=== PATIENT | male | born 1965 | race Caucasian/White ===

== ENCOUNTER 2020-10-29 12:40 | Emergency (ER) | payer BC, SELFPAY ==
[2020-10-29 12:42] VITALS: BP 125/80; PULSE 85; RESP 18; TEMP 37.7; O2SAT 95; BMI 29.9
--- NOTE | 2020-10-29 13:22 | EKG12_ITS ---
Test Reason : CHEST PAIN Blood Pressure : / mmHG Vent. Rate : 081 BPM Atrial Rate : 081 BPM P-R Int : 132 ms QRS Dur : 088 ms QT Int : 356 ms P-R-T Axes : 060 065 035 degrees QTc Int : 413 ms Normal sinus rhythm Normal ECG Confirmed by LAURA CHRISTIAN, JOSH ([id number]), mapping editor SANDI STILL ([id number]) on 10/31/2020 10:03:47 AM Referred By: Confirmed By:JOSH SANCHEZ MD
--- NOTE | 2020-10-29 13:23 | RAD_ITS ---
STUDY: X-RAY CHEST REASON FOR EXAM: Male, 55 years old. covid sob TECHNIQUE: Single AP portable view of the chest. COMPARISON: None. FINDINGS: Bilateral pulmonary infiltrates worse in the right hemithorax. The infiltrates in the right hemithorax have a preferentially peripheral distribution suggestive of Covid pneumonitis. There is no demonstrated pleural abnormality. Normal size heart. Normal mediastinum and jolly. Normal visualized pulmonary arteries. Normal visualized aortic arch and descending thoracic aorta. Normal visualized thoracic spine. Normal visualized ribs, clavicles, and shoulders. There is no demonstrated abnormality of the visualized soft tissue structures of the upper abdomen. RAD/Chest 1 View (Portable) IMPRESSION: Bilateral pulmonary infiltrates worse in the right hemithorax. Electronically Signed: Amadou Schreiber MD at 14:14 EDT , Service support ,
--- NOTE | 2020-10-29 13:34 | NURSING ---
NO OLD EKGS
[2020-10-29 13:53] LABS: Absolute Lymphocyte Count 0.72 X10^3/uL (0.83-4.51); Basophil# 0.02 X10^3/uL; Basophil% 0.5 % (0-1); Lymphocyte # 0.72 X10^3/ul (0.83-4.51); Lymphocyte % 17.1 % (19-41); Mean Corpuscular Hgb 30.7 pg (27.0-32.0); Mean Platelet Vol. 9.3 fl (6.2-12.0); Monocyte# 0.47 X10^3/uL; Monocyte% 11.1 % (0-10); NRBC Flagged by Analyzer 0 % (0-5); Neutrophil # 2.99 X10^3/uL (2.7-7.7); Neutrophil % 70.8 % (47-70); Platelet Count 145 K/mm3 (150-450); RBC Distribution Width SD 39.8 fl (35.1-43.9); Red Blood Count 5.22 M/mm3 (4.6-6.2); White Blood Count 4.2 K/mm3 (4.4-11.0)
--- NOTE | 2020-10-29 13:59 | EDS_ITS ---
HPI History of Present Illness Chief Complaint: General Illness Informant: patient Onset/Context/Timing Onset: Days (8) Context: Gradual Onset Timing: Continuous Quality: Fatigued Location: All over Current Severity: Severe Maximum Severity: Severe Worsened by: Nothing Relieved by: Nothing Associated Symptoms Associated Symptoms: Short of breath x couple days Narrative Narrative: Patient has had Covid symptoms for 8 days he tested positive last week as an outpatient, now getting dyspneic for the last couple days. No history of lung disease or other medical problems. He was not vaccinated prior to getting Covid. PFSH PFSH no medical history Home Medications albuterol sulfate [Ventolin HFA] 1 - 2 puff INHALATION Q4H PRN PRN #1 inhaler 10/29/20 [Rx Last Taken Unknown] ondansetron 8 mg PO Q8H PRN PRN #20 tab 10/29/20 [Rx Last Taken Unknown] promethazine 25 mg PO Q6H PRN 10/29/20 [History Last Taken Unknown] Allergy/AdvReac Type Severity Reaction Status Date / Time No Known Allergies Allergy Verified 10/29/20 12:41 Surgical History (Updated 10/29/20 @ 15:40 by Eliu Corbett) History of arthroscopic knee surgery no surgical history Social History Smoking Status: Never smoker ROS ROS ED Constitutional Constitutional ED: Reports body ache(s), malaise and weakness; Denies chills or fever(s) Eyes Eyes: Denies change in vision or diplopia ENT ENT ED: Denies rhinorrhea or sore throat Cardiovascular Cardiovascular: Denies chest pain or palpitations Respiratory/Chest Respiratory/Chest: Reports cough and dyspnea Gastrointestinal Gastrointestinal: Reports diarrhea; Denies abdominal pain, nausea or vomiting Genitourinary Genitourinary ED: Denies dysuria or hematuria Musculoskeletal Musculoskeletal: Reports myalgias; Denies back pain or neck pain Integumentary Denies abscess or rash Neurologic Neurologic: Denies headache(s), paresthesias or weakness Psychiatric Psychiatric: Denies anxiety or suicidal thoughts EXAM Physical Exam Const Vital Signs: 10/29/20 12:42 10/29/20 15:38 10/29/20 15:42 Temperature 99.9 F H Temperature Source Temporal Pulse Rate 85 76 Respiratory Rate 18 18 Respiratory Effort Normal Blood Pressure 125/80 H Blood Pressure Mean 95 Pulse Ox 95 94 Oxygen Delivery Method Room Air Room Air Positive well nourished and well developed General Appearance ED: well developed and NAD HEENT Reports moist mucous membranes normocephalic and atraumatic Eyes PERRL and EOMs intact bilaterally Neck full ROM and supple Resp normal respiratory effort and clear to auscultation bilaterally Cardio regular rate, regular rhythm and no murmurs GI non-tender and non-distended Auscultation: normoactive bowel sounds Palpation: soft Back/Spine no CVA tenderness General Back: other FROM Extremity normal to inspection General Extremety ED: Negative for edema, pulses abnormal or tenderness General Extremity: Negative for edema or pulses abnormal Neuro oriented x3, CN's II-XII intact bilaterally and no sensory deficits noted Sensorium / Orientation: awake and alert Motor Exam: strength 5/5 throughout Skin no rashes or lesions noted and no wounds MDM MDM MDM Narrative Medical decision making narrative: D-dimer was elevated so CT angiography was performed which shows no pulmonary embolus. Covid pneumonia is noted. His pulse ox did not go below 94 while here in the emergency department. His nausea was treated. At this time he is a healthy 55-year-old male who does not meet an y indication for admission for Covid, nor does he meet any indications for monoclonal antibody infusion. At this time I recommend supportive care and watching his oxygen saturations at home. It appears that he was seen at urgent care prior to this and placed on Zithromax and Augmentin for reasons that are unknown. He confirms that he did not have any other positive test such as strep, urine, etc. As long as that is the case I recommend stopping these medications since he is only had 1 dose of each, and continuing to promethazine as needed although he states it did not work a lot so we will prescribe him Zofran in addition to an albuterol inhaler to use as needed. We discussed reasons to return especially pulse ox staying in the 80% range. Lab Data Attestation: I reviewed the patient's lab results. Labs: Laboratory Results - last 24 hr 10/29/20 10/29/20 10/29/20 13:46 13:46 13:46 WBC 4.2 L RBC 5.22 Hgb 16.0 Hct 47.0 MCV 90.0 MCH 30.7 MCHC 34.0 RDW Std Deviation 39.8 RDW Coeff of Bradley 12.0 Plt Count 145 L MPV 9.3 Immature Gran % (Auto) 0.500 Neut % (Auto) 70.8 H Lymph % (Auto) 17.1 L Meeker % (Auto) 11.1 H Eos % (Auto) 0.0 Baso % (Auto) 0.5 Absolute Neuts (auto) 3.0 Absolute Lymphs (auto) 0.72 L Nucleated RBC % 0 D-Dimer Quant (PE/DVT) 1.12 H* Sodium 136 Potassium 4.2 Chloride 102 Carbon Dioxide 28.0 Anion Gap 6 BUN 13 Creatinine 1.10 Estim Creat Clear Calc 73.41 Est GFR (MDRD) Af Amer 89 Est GFR (MDRD) Non-Af 74 BUN/Creatinine Ratio 11.8 Glucose 94 Calcium 8.4 L Radiography Chest X-Ray - ED: 1 View, Read by ED Physician, Right Infiltrate and Left Infiltrate Diagnostic Testing: Radiology Impression Chest X-Ray 10/29/20 13:23 IMPRESSION: Bilateral pulmonary infiltrates worse in the right hemithorax. Electronically Signed: Amadou Schreiber MD at 14:14 EDT , Service support , Chest CTA 10/29/20 14:08 IMPRESSION: Bilateral pulmonary infiltrates and a preferential lateral distribution as described suggestive of a pneumonitis associated with Covid. No evidence of pulmonary embolism. Electronically Signed: Amadou Schreiber MD at 15:00 EDT , Service support , EKG Initial EKG: Attestation: I personally reviewed and interpreted this EKG as follows: Interpretation: Sinus Rhythm and No Acute Injury Pattern Comments: normal EKG Discharge Plan Triage Chief Complaint: General Illness ED Provider: Phillip Griggs Dx/Rx/DC Orders Clinical Impression: Pneumonia due to 2019 novel coronavirus Instructions: Coronavirus Disease 2019 (COVID-19): Caring for Yourself or Others Prescriptions: New albuterol sulfate [Ventolin HFA] 1 INHALER inhaler 1 - 2 puff inhalation Q4H PRN PRN (Reason: Wheezing) Qty: 1 RF: 0 ondansetron [ondansetron] 4 MG tablet 8 mg PO Q8H PRN PRN (Reason: Nausea) Qty: 20 RF: 0 Continued promethazine 25 mg Tablet 25 mg PO Q6H PRN (Reason: Nausea) RF: 0 Discontinued Zithromax Z-Tao 250 mg Capsule PO RF: 0 amoxicillin-pot clavulanate [Augmentin] 875-125 mg Tablet 1 tab PO BID RF: 0 Primary Care Provider: Ej Lozada Referrals: Ej Lozada MD [Primary Care Provider] - As Needed Activity Restrictions/Additional Instructions: Try to get a home portable pulse oximeter and closely watch her oxygen levels periodically. If you stay below 90% for more than a minute or so, and/or you are feeling like your breathing is getting worse, return to the emergency department for further evaluation. Disposition Disposition: Home, Self Care
[2020-10-29 14:06] LABS: Anion Gap 6 (5-15); BUN 13 mg/dL (7-18); BUN/Creat Ratio 11.8 RATIO (10-20); Calcium,Total 8.4 mg/dL (8.5-10.1); Chloride 102 mmol/L (98-107); D-Dimer Quantitative (DVT/PE) 1.12 FEU/ug/m (0.27-0.49); EST Glomerular Filtration Rate 74 mL/min (>60); Est Glom Filt Rate - Afr Amer 89 mL/min (>60); Estimated Creatinine Clearance 73.41 ml/min; Glucose 94 mg/dL (74-106); Potassium 4.2 mmol/L (3.5-5.1); Sodium Level 136 mmol/L (136-145)
--- NOTE | 2020-10-29 14:08 | CT_ITS ---
STUDY: CTA CHEST REASON FOR EXAM: Male, 55 years old. covid, sob, elevated d-dimer RADIATION DOSAGE (If Supplied By Facility): CTDIvol = ( 10.50 ) mGy, DLP = ( 368.96 ) mGycm TECHNIQUE: The examination was performed with the intravenous administration of IV 100ML ISOVUE 370. Post-processing of the angiographic images was performed, with multiplanar reformation and 3D reconstruction. Individualized dose optimization techniques were used for this CT. COMPARISON: None. FINDINGS: Normal enhancement of the main pulmonary artery and right and left pulmonary arteries. Normal enhancement of the bilateral peripheral pulmonary arteries. There is no demonstrated pulmonary embolism. Normal thoracic aorta and visualized great vessels. There is no demonstrated aortic dissection. Normal heart and pericardium. Normal mediastinum. Normal hilar regions. Normal visualized trachea and bronchi. The lungs are well expanded. There is multifocal patchy infiltrates in the preferential peripheral distribution involving both upper lobes and lower lobes. This is more pronounced in the left lower lobe. Normal pleura. Normal chest wall structures. There are degenerative changes of thoracic spine. Normal visualized upper abdomen. CT/CTA Chest W/WO Contrast IMPRESSION: Bilateral pulmonary infiltrates and a preferential lateral distribution as described suggestive of a pneumonitis associated with Covid. No evidence of pulmonary embolism. Electronically Signed: Amadou Schreiber MD at 15:00 EDT , Service support ,
[2020-10-29] MEDS: Ketorolac 15 MG/ML Vial IV (15:36)
[2020-10-29 15:38] VITALS: PULSE 76; RESP 18; O2SAT 94
[2020-10-29] MEDS: Ondansetron 4 MG/2 ML Vial IV (16:23)
[2020-10-29 17:30] VITALS: BP 134/79; PULSE 81; RESP 22; O2SAT 95
--- NOTE | 2020-10-29 17:30 | ED.RN ---
THIS NURSE REVIEWED D/C INSTRUCTIONS WITH PT AND VISITOR. BOTHER VERBALIZED UNDERSTANDING OF INSTRUCTIONS. IV D/C. IV CATHETER INTACT. PT TOLERATED WELL. PT DENIES FURTHER NEEDS OR QUESTIONS AT THIS TIME.
== END 2020-10-29 17:31 | disposition home or self-care (01) ==
PROVIDERS: Emergency Provider Emergency Medicine; PCP Family Medicine
DX: U07.1 COVID-19 (principal); J12.82 Pneumonia due to coronavirus disease 2019; Z79.899 Other long term (current) drug therapy
CPT/HCPCS: 71045; 71275; 80048; 85025; 85379; 93005; 96374; 96375; 99283; J7030; Q9967; A4216; J2405

== ENCOUNTER 2024-09-01 21:28 | Emergency (ER) | payer OTHER, SELFPAY ==
[2024-09-01 21:28] VITALS: BP 147/89; PULSE 69; RESP 14; TEMP 36.6; O2SAT 98; BMI 32.8
--- NOTE | 2024-09-01 21:31 | ED.RN ---
pt upset because he has to wait in the waiting room and can not go immediately back
--- NOTE | 2024-09-01 22:08 | EX.ED.DYSGE1 ---
HPI History of Present Illness Chief Complaint: Lower Extremity Injury PFSH PFS Home Medications ?Medication ?Instructions ?Recorded ?Last Taken ?Type albuterol sulfate 90 mcg/actuation 1 - 2 puff inhalation Q4H PRN PRN 10/29/20 Unknown Rx aerosol inhaler (Ventolin HFA) Wheezing ##1 sulfamethoxazole 800 1 tab PO Q12H 7 days #14 tabs 09/01/24 Unknown Rx mg-trimethoprim 160 mg tablet (Bactrim DS) Allergy/AdvReac Type Severity Reaction Status Date / Time No Known Allergies Allergy Verified 09/01/24 21:28 Surgical History History of arthroscopic knee surgery Social History Smoking Status: Never smoker EXAM Physical Exam Const Vital Signs: 09/01/24 21:28 09/01/24 23:34 Temperature 98 F 98 F Temperature Source Temporal Pulse Rate 69 59 L Respiratory Rate 14 16 Blood Pressure 147/89 H 125/88 H Blood Pressure Mean 108 100 Pulse Ox 98 99 Oxygen Delivery Method Room Air [facility] [place] Narrative Medical decision making narrative: HISTORY OF PRESENT ILLNESS: Chief complaint: Leg injury 58-year-old man presents with left leg pain. Patient notes initial injury occurred 2 weeks ago when he was pulling wood out of his truck and there is a shearing force going down injuring his left leg. REVIEW OF SYSTEMS: Pertinent positives: Left leg pain Pertinent negatives: Fever, chills nausea PHYSICAL EXAM: Nursing triage notes reviewed, Vital signs reviewed Constitutional: please see mdm Extremities: Compartments are soft Neuro: Intact sensation L1-S1 dermatomal distributions. Intact 5/5 strength in hip flexion (T12-L3). Knee extension (L2-L4). Ankle dorsiflexion (L4-L5). Ankle plantar flexion (S1). Great toe extension (L5). 2+ patellar and Achilles DTRs. Skin: Abrasion noted that is healing to the left lower extremity with surrounding erythema and warmth. No crepitus or bullae noted there is a central area of fluctuance to the left lower extremity. MEDICAL DECISION MAKING: Chief Complaint: please see HPI External records reviewed: Reviewed prior imaging studies: Reviewed CT scan of the left lower extremity from today which showed no fracture additional deep subcutaneous hematoma possibly Walsh Sourav lesion. X-ray of the left tibia from 08/25/2024 shows periosteal reaction but no acute fracture or dislocation Factors affecting care: Asthma Social determinants of health: none History obtained from others: none Consults: none MDM Narrative: The patient was initially hemodynamically stable, afebrile and nontoxic-appearing. Exam with warmth, redness to the lower extremity. There is a area of L fluctuance noted just under the area of abrasion. Clinically concerns for posttraumatic cellulitis. While the patient had no DVT risk factors also there is a concern for DVT given unilateral leg swelling and calf tenderness. I also considered fracture dislocation however the patient had multiple imaging studies that show he did not have a fracture dislocation I considered the following differential diagnosis: DVT, cellulitis, necrotizing fasciitis, abscess, hematoma I obtained a workup to further determine if the patient was suffering from a life-threatening etiology. Do not feel labs are necessary at this time as patient had no fever or signs of sepsis and was not toxic appearing ALL IMAGES (IF OBTAINED) HAVE BEEN PERSONALLY REVIEWED AND INTERPRETED BY MYSELF. DVT ultrasound was read preliminarily by entry level installation technician is negative for DVT but did show some superficial thrombophlebitis as well as a hematoma to left lower extremity Will give a course of antibiotics to cover MRSA. Given there is concern for hematoma will NOT perform incision and drainage as there is a high risk of bleeding. Strict infection return precautions were discussed The patient and/or family, caregivers express understanding. The patient and/or family, caregivers agrees with the plan. Shared decision making: I will have a discussion with the patient and or visitors regarding risk/benefits of further testing or admission. They will be made aware of of the risk/benefits inherent in this decision they will be given the opportunity to voice understanding. Total critical care time today provided was at least 0 minutes. This excludes separately billable procedures. Critical care time (if documented) is secondary to the patient having high probability of clinically significant/life threatening deterioration in the patient's condition which required my urgent intervention. Impression: 1. Left leg pain 2. Left leg hematoma 3. Posttraumatic cellulitis Dispo: Discharge home This note was generated with [employer] dictation software. It may contain incorrect words, spelling, and punctuation that were not noted in review of the chart prior to signing. Radiography Diagnostic Testing: Clinical Impression(s) from Imaging Studies Venous Duplex 09/01/24 22:26 IMPRESSION: No DVT. Reading Location: [facility] Discharge Plan Triage Chief Complaint: Lower Extremity Injury ED Provider: Ck Feliciano Dx/Rx/DC Orders Clinical Impression: Hematoma, Cellulitis Instructions: Cellulitis Dc Prescriptions: New sulfamethoxazole-trimethoprim [Bactrim DS] 800-160 mg tablet 1 tab PO Q12H 7 Days Qty: 14 0RF No Action albuterol sulfate [Ventolin HFA] 1 INHALER inhaler 1 - 2 puff inhalation Q4H PRN PRN (Reason: Wheezing) Qty: 1 0RF Primary Care Provider: Ej Lozada Referrals: Ej Lozada MD [Primary Care Provider] - Activity Restrictions/Additional Instructions: Thank you for trusting us with your care today! Your ultrasound was negative for a deep vein thrombosis (blood clot). Did show a hematoma which is a blood collection. This typically resolves without intervention Your exam was concerning for surrounding superficial skin infection as such I prescribed antibiotic. Please take antibiotic till course completed. If you notice decreased sensation, coolness to touch or severe pain in the left lower extremity. Please take Tylenol (2 pills, 650 mg), ibuprofen (2 pills, 400 mg) every 6 hours as needed for pain and fever control. Please return to the emergency department if your symptoms change or worsen. Specifically redness worsens suddenly, you develop vomiting, fevers Please follow with your primary care physician for further outpatient evaluation and management. Print Language: Sinhala Disposition Disposition: Home, Self Care Discharge Date/Time: 09/01/24 23:37
--- NOTE | 2024-09-01 22:26 | US_ITS ---
EXAM: US Duplex Right Lower Extremity Veins CLINICAL INDICATION: TECHNIQUE: Real-time duplex ultrasound scan of the right lower extremity veins integrating B-mode two-dimensional vascular structure, Doppler spectral analysis, color flow Doppler imaging and compression. COMPARISON: No relevant prior studies available. FINDINGS: DEEP VEINS: Unremarkable. No DVT in the visualized common femoral, femoral, proximal deep femoral or popliteal veins. The veins demonstrate normal color flow, are normally compressible, with normal phasic flow and/or augmentation response. SUPERFICIAL VEINS: Thrombophlebitis of the greater saphenous vein. SOFT TISSUES: No acute findings. No popliteal cyst. US/Venous Duplex Imag/Limited/Uni IMPRESSION: No DVT. Reading Location: [id number]
--- OUTSIDE RECORDS SUMMARY | 2024-09-01 22:31 | XMS RPT_ITS | CCD ---
Author Organization [facility] InformFormerly [facility] Care Team Providers Care Crutch Maker Name Role Phone Ness Hayes MD Primary Care Provider Ness Hayes MD Primary Care Provider Bean FUENTES.CARMELO, Dany Unavailable PAZ AMBRIZ Referring Unavailable NESS HAYES Primary Care Unavailable NESS HAYES Primary Care Unavailable PAZ AMBRIZ Attending Unavailable NESS HAYES Referring Unavailable NESS HAYES Primary Care Unavailable NESS HAYES Attending Unavailable NESS HAYES Primary Care Unavailable Medications Current Medications Medication Drug Class(es) Dates Sig (Normalized) Sig (Original) [id number] actuat albuterol 0.09 mg/actuat metered dose inhaler (6 sources) beta2-Adrenergic Agonist Start: 11-05-2023 take 2 puff(s) by inhalation every four hours as needed for wheezing albuterol HFA (PROVENTIL HFA, VENTOLIN HFA) 90 mcg/actuation inhaler Indications: Environmental allergies Inhale 2 Puffs as instructed every 4 hours as needed for wheezing/shortness of breath. 18 g 2 11/05/2023 Active Start: 10-29-2020 End: 11-05-2023 take 2 puff(s) by inhalation every four hours as needed for wheezing albuterol HFA (PROVENTIL HFA, VENTOLIN HFA) 90 mcg/actuation inhaler Inhale 2 Puffs as instructed every 4 hours as needed for wheezing/shortness of breath. 10/29/2020 11/05/2023 Discontinued Completed/Discontinued Medications Medication Drug Class(es) Dates Sig (Normalized) Sig (Original) meloxicam 15 mg oral tablet (9 sources) Nonsteroidal Anti-inflammatory Drug Start: 10-31-2021 End: 11-05-2023 take 1 tablet by mouth once daily at mealtime meloxicam (MOBIC) 15 mg tablet Indications: Acute pain of left knee Take 1 tablet by mouth once daily. With food. 30 tablet 1 10/31/2021 11/05/2023 Discontinued Comment on above: Take 1 tablet by karthikeyan th once daily. With food. promethazine hydrochloride 25 mg oral tablet (10 sources) Phenothiazine Start: 10-28-2020 End: 11-05-2023 take 1 tablet by mouth every six hours as needed for nausea and nausea promethazine (PHENERGAN) 25 mg tablet Indications: Nausea Take 1 tablet by mouth every 6 hours as needed. 12 tablet 10/28/2020 11/05/2023 Discontinued Comment on above: Take 1 tablet by karthikeyan th every 6 hours as needed. Problems Active Problems Problem Classification Problem Date Documented Da te Episodic/Chronic Crushing injury or internal injury (3 sources) Crush injury of left lower leg; Translations: [Crushing injury of left lower leg, initial encounter] Onset: 08-25-2024 08-25-2024 Episodic Disorders of lipid metabolism (3 sources) Hyperlipidemia; Translations: [Hyperlipidemia, unspecified] Onset: 12-06-2023 Chronic Other lower respiratory disease (2 sources) Cough; Translations: [Acute cough] 03-20-2023 Episodic Other screening for suspected conditions (not mental disorders or infectious disease) (6 sources) Patient encounter status; Translations: [Encounter for screening for malignant neoplasm of prostate] Onset: 12-06-2023 11-05-2023 Episodic Past or Other Problems Problem Classification Problem Date Documented Date Episodic/Chronic Allergic reactions (6 sources) Environmental allergy; Translations: [Other allergy status, other than to drugs and biological substances] Onset: 11-05-2023 11-05-2023 Episodic Malaise and fatigue (3 sources) Fatigue; Translations: [Other fatigue] Onset: 12-06-2023 11-05-2023 Episodic Other non-traumatic joint disorders (20 sources) Pain in left knee; Translations: [Pain in joint, lower leg] Onset: 11-07-2021 Episodic Unclassified (2 sources) Crush injury of left lower leg 08-25-2024 Results Test Name Value Interpretation Reference Range Facility CT Lower leg - left WO contr barbara 09-01-2024 IMPRESSION: 1. NO FRACTURE 2. DEEP SUBCUTANEOUS HEMATOMA, POSSIBLY A RODRIGUEZ-CHAPO LESION Correction Officer Supervisor: PSCYoshi Transcribe Date/Time: Sep 01 2024 4:27P Dictated by : CORONA ACOSTA MD This examination was interpreted and the report reviewed and electronically signed by: CORONA ACOSTA MD on Sep 01 2024 4:38PM [facility] DIVISION OF RADIOLOGY * * *Final Report* * * DATE OF EXAM: Sep 01 2024 3:46PM [facility] - CT TIB-FIB WO IVCON LT / PROCEDURE REASON: Encounter for observation for other suspected diseases and conditions ruled out * * * * Physician Interpretation * * * * HISTORY: Encounter for observation for other suspected diseases and conditions ruled out . Crush injury in mid August. TECHNOLOGIST PROVIDED HISTORY (if applicable): Lt leg injury TECHNIQUE: CT TIB-FIB WO IVCON LT CT Radiation dose: Integrated Dose-length product (DLP) for this visit = 835 mGy*cm. CT Dose Reduction Employed: Automated exposure control(AEC) and iterative recon RESULT: Multidetector axial acquisition and CT scan of the LEFT tibia and fibula are submitted with data reformatted in axial sagittal and coronal planes and reviewed in bone and soft tissue windows and algorithms. A fairly well circumscribed heterogeneous complex fluid collection with irregular margins is seen in the deep subcutaneous fat of the anteromedial distal third of the leg measuring 1.9 x 6.0 cm in transverse dimensions and extending over approximately 13 cm. It abuts the medial aspect of the superficial fascia of the anterior and posterior compartments and the medial tibia. It is heterogeneous in attenuation consistent with subacute hematoma. No soft tissue gas. No fracture. No acute periosteal reaction or bone destruction. The periosteal reaction described along the medial and posterior tibia on the radiographs corresponds to enthesopathy related to muscle attachments. Mild generalized cutaneous and subcutaneous edema are noted most confluent along the lateral aspect of the mid leg. Muscle bulk and attenuation are normal. Tendons appear intact with insertional Achilles enthesophyte. Status post anterior cruciate ligament reconstruction with bone patellar tendon bone graft and femoral and tibial interference screws. DIVISION OF RADIOLOGY Provider, [facility] Evangelist Serene - 09/01/2024 * * *Final Report* * * DATE OF EXAM: Sep 01 2024 3:46PM [facility] 0092 - CT TIB-FIB WO IVCON LT / PROCEDURE REASON: Encounter for observation for other suspected diseases and conditions ruled out * * * * Physician Interpretation * * * * HISTORY: Encounter for observation for other suspected diseases and conditions ruled out . Crush injury in mid August. TECHNOLOGIST PROVIDED HISTORY (if applicable): Lt leg injury TECHNIQUE: CT TIB-FIB WO IVCON LT CT Radiation dose: Integrated Dose-length product (DLP) for this visit = 835 mGy*cm. CT Dose Reduction Employed: Automated exposure control(AEC) and iterative recon RESULT: Multidetector axial acquisition and CT scan of the LEFT tibia and fibula are submitted with data reformatted in axial sagittal and coronal planes and reviewed in bone and soft tissue windows and algorithms. A fairly well circumscribed heterogeneous complex fluid collection with irregular margins is seen in the deep subcutaneous fat of the anteromedial distal third of the leg measuring 1.9 x 6.0 cm in transverse dimensions and extending over approximately 13 cm. It abuts the medial aspect of the superficial fascia of the anterior and posterior compartments and the medial tibia. It is heterogeneous in attenuation consistent with subacute hematoma. No soft tissue gas. No fracture. No acute periosteal reaction or bone destruction. The periosteal reaction described along the medial and posterior tibia on the radiographs corresponds to enthesopathy related to muscle attachments. Mild generalized cutaneous and subcutaneous edema are noted most confluent along the lateral aspect of the mid leg. Muscle bulk and attenuation are normal. Tendons appear intact with insertional Achilles enthesophyte. Status post anterior cruciate ligament reconstruction with bone patellar tendon bone graft and femoral and tibial interference screws. IMPRESSION IMPRESSION: 1. NO FRACTURE 2. DEEP SUBCUTANEOUS HEMATOMA, POSSIBLY A RODRIGUEZ-CHAPO LESION Correction Officer Supervisor: [facility] Transcribe Date/Time: Sep 01 2024 4:27P Dictated by : CORONA ACOSTA MD This examination was interpreted and the report reviewed and electronically signed by: CORONA ACOSTA MD on Sep 01 2024 4:38PM EST [facility] Radiology Study observation (narrative) [facility] CT Lower leg - left WO contr astOrdered By: Ccf Provider on 09-01-2024 [facility] CNOVon 08-25-2024 CNOV Office Visit (UCWSTR ) CHITRA GOMEZ ([id number]) 1965 M Date Time Provider Department 08/25/24 4:00 PM PAZ AMBRIZ [facility] During your visit today, we recorded the following information about you: Temperature Pulse Respiration Blood pressure 98.7 degrees 83/minute 18/minute 130/85 Weight 97.5 kg Paz Ambriz APRN.DANCE ENTERTAINER 08/25/2024 4:53 PM Signed [facility] Subjective Chitra Gomez is a 58 year old male. Patient presents with: Leg Injury: L lower leg injury x6 days, 6 sheets of plywood fell into calvin, swelling and bruising, blisters in middle weeping Patient presents for increased swelling, bruising and pain following a crush injury 6 days ago when plywood fell on his calvin The history is provided by the patient. No russian language instructor was used. Review of Systems Constitutional: Negative for activity change. Musculoskeletal: Positive for myalgias. Skin: Positive for wound. Objective BP 130/85 Pulse 83 Temp 37.1 ?C (98.7 ?F) Resp 18 Wt 97.5 kg (214 lb 15.2 oz) SpO2 98% BMI 32.68 kg/m? Physical Exam Constitutional: Appearance: Normal appearance. Musculoskeletal: General: Swelling, tenderness and signs of injury present. Left lower leg: Edema present. Skin: Findings: Bruising (Left lower leg from upper calf to ankle. pain with palpation of medial calf. leg significantly swollen when compared to right leg. Pulses palpable and strong.) present. Neurological: Mental Status: He is alert. {ASSESSMENT/PLAN: 1. Crushing injury of left lower leg, initial encounter - ICD9: 928.10, ICD10: S87.82XA - XR shows periosteal reaction, concern for osteomyelitis due to open abrasions at area of injury. Patient advised to poroceed to ER for advanced imaging. - XR TIBIA FIBULA 2V AP/LAT LEFT Paz Ambriz APRN.DANCE ENTERTAINER MDM Procedures Allergies As of Date: 08/25/2024 (No Known Allergies) Date Reviewed: 08/25/2024 Reviewed by: Priyanka Vo MA - Fully Assessed Reason for Visit: Leg Injury [1982] Cmt: L lower leg injury x6 days, 6 sheets of plywood fell into calvin, swelling and bruising, blisters in middle weeping Primary Visit Diagnosis:Crushing injury of left lower leg, initial encounter [S87.82XA] Order(s):XR TIBIA FIBULA 2V AP/LAT LEFT [[id number]] Order #: [id number] FUTURE Prescriptions as of 08/25/2024 - albuterol HFA (PROVENTIL HFA, VENTOLIN HFA) 90 mcg/actuation inhaler Inhale 2 Puffs as instructed every 4 hours as needed for wheezing/shortness of breath. Problem List As Of Date 08/25/2024 Noted Resolved Acute pain of left knee [M25.562] 11/07/2021 Environmental allergies [Z91.09] 11/05/2023 Disposition: Return if symptoms worsen or fail to improve. Follow-up and Disposition History for Encounter Date Provider Department Center 08/25/2024 [id number] AMBRIZ [facility]WSTR [facility] Encounter Status:Closed by PAZ AMBRIZ on 08/25/24 [facility] XR TIBIA FIBULA 2V AP/LAT LT on 08-25-2024 XR TIBIA FIBULA 2V AP/LAT LT * * *Final Report* * * DATE OF EXAM: Aug 25 2024 4:40PM [id number] - XR TIBIA FIBULA 2V AP/LAT LT / PROCEDURE REASON: Crushing injury of left lower leg, initial encounter * * * * Physician Interpretation * * * * EXAM TITLE: XR TIBIA FIBULA 2V AP/LAT LT EXAM DATE/TIME: 08/25/2024 4:40 PM COMPARISON: None. CLINICAL INDICATION/HISTORY: Injury. TECHNIQUE: AP and lateral views of the left tibia and fibula are presented. FINDINGS: No acute fracture seen. Periosteal reaction visualized along the medial and posterior aspect of the proximal to mid tibia. Status post ACL reconstruction. The mineralization of the bones is normal. There is no significant soft tissue swelling. IMPRESSION: Periosteal reaction in the left tibia. Please clinically correlate. Correction Officer Supervisor: GURVINDER Transcribe Date/Time: Aug 25 2024 4:41P Dictated by : BRIGITTE MORTON MD This examination was interpreted and the report reviewed and electronically signed by: BRIGITTE MORTON MD on Aug 25 2024 4:42PM EST [id number] Normal [facility] XR Tibia and Fibula - left A P and Lateralon 08-25-2024 IMPRESSION: Perioste al reaction in the left tibia. Please clinically correlate. Correction Officer Supervisor: [facility] Transcribe Date/Time: Aug 25 2024 4:41P Dictated by : BRIGITTE MORTON MD This examination was interpreted and the report reviewed and electronically signed by: BRIGITTE MORTON MD on Aug 25 2024 4:42PM EST DIVISION OF RADIOLOGY * * *Final Report* * * DATE OF EXAM: Aug 25 2024 4:40PM WOX [id number] - XR TIBIA FIBULA 2V AP/LAT LT / PROCEDURE REASON: Crushing injury of left lower leg, initial encounter * * * * Physician Interpretation * * * * EXAM TITLE: XR TIBIA FIBULA 2V AP/LAT LT EXAM DATE/TIME: 08/25/2024 4:40 PM COMPARISON: None. CLINICAL INDICATION/HISTORY: Injury. TECHNIQUE: AP and lateral views of the left tibia and fibula are presented. FINDINGS: No acute fracture seen. Periosteal reaction visualized along the medial and posterior aspect of the proximal to mid tibia. Status post ACL reconstruction. The mineralization of the bones is normal. There is no significant soft tissue swelling. DIVISION OF RADIOLOGY Provider, [facility] - 08/25/2024 * * *Final Report* * * DATE OF EXAM: Aug 25 2024 4:40PM [facility] [id number] - XR TIBIA FIBULA 2V AP/LAT LT / PROCEDURE REASON: Crushing injury of left lower leg, initial encounter * * * * Physician Interpretation * * * * EXAM TITLE: XR TIBIA FIBULA 2V AP/LAT LT EXAM DATE/TIME: 08/25/2024 4:40 PM COMPARISON: None. CLINICAL INDICATION/HISTORY: Injury. TECHNIQUE: AP and lateral views of the left tibia and fibula are presented. FINDINGS: No acute fracture seen. Periosteal reaction visualized along the medial and posterior aspect of the proximal to mid tibia. Status post ACL reconstruction. The mineralization of the bones is normal. There is no significant soft tissue swelling. IMPRESSION IMPRESSION: Periosteal reaction in the left tibia. Please clinically correlate. Correction Officer Supervisor: GURVINDER Transcribe Date/Time: Aug 25 2024 4:41P Dictated by : BRIGITTE MORTON MD This examination was interpreted and the report reviewed and electronically signed by: BRIGITTE MORTON MD on Aug 25 2024 4:42PM EST [facility] Radiology Study observation (narrative) [facility] XR Tibia and Fibula - left A P and LateralOrdered By: Ccf Provider on 08-25-2024 [facility] CBC W Auto Differential pane l (Bld)on 12-06-2023 Basophils (Bld) [#/Vol] 0.06 10*3/uL Normal <0.11 [facility] Comment on above: Order Comment: Speci men Type: BLOOD SPECIMEN Ordering Facility: [facility] Address: [address] [place] [address] Performed By: #### 5 7021-8 #### [facility] CLIA [id number] [address] [place] [address] [place] Basophils/100 WBC (Bld) 1.1 % Normal [facility] Comment on above: Order Comment: Speci men Type: BLOOD SPECIMEN Ordering Facility: [facility] Address: [address] [place] [address] Performed By: #### 5 7021-8 #### [facility] CLIA [id number] [address] [place] [address] [place] Differential cell count method Nom (Bld) Auto Normal [facility] Comment on above: Order Comment: Speci men Type: BLOOD SPECIMEN Ordering Facility: [facility] Address: [address] [place] [address] Performed By: #### 5 7021-8 #### [facility] CLIA [id number] [address] [place] [address] [place] Eosinophils (Bld) [#/Vol] 0.10 10*3/uL Normal <0.46 [facility] Comment on above: Order Comment: Speci men Type: BLOOD SPECIMEN Ordering Facility: [facility] Address: [address] [place] [address] Performed By: #### 5 7021-8 #### [facility] CLIA [id number] [address] [place] [address] [place] Eosinophils/100 WBC (Bld) 1.8 % Normal [facility] Comment on above: Order Comment: Speci men Type: BLOOD SPECIMEN Ordering Facility: [facility] Address: [address] [place] [address] Performed By: #### 5 7021-8 #### [facility] CLIA [id number] [address] [place] [address] [place] Erythrocyte distribution width (RBC) [Ratio] 13.1 % Normal 11.5-15.0 [facility] Comment on above: Order Comment: Speci men Type: BLOOD SPECIMEN Ordering Facility: [facility] Address: [address] [place] [address] Performed By: #### 5 7021-8 #### [facility] CLIA [id number] [address] [place] [address] [place] Hematocrit (Bld) [Volume fraction] 47.2 % Normal 39.0-51.0 [facility] Comment on above: Order Comment: Speci men Type: BLOOD SPECIMEN Ordering Facility: [facility] Address: [address] [place] [address] Performed By: #### 5 7021-8 #### [facility] CLIA [id number] [address] [place] [address] [place] Hemoglobin (Bld) [Mass/Vol] 16.0 g/dL Normal 13.0-17.0 [facility] Comment on above: Order Comment: Speci men Type: BLOOD SPECIMEN Ordering Facility: [facility] Address: [address] [place] [address] Performed By: #### 5 7021-8 #### [facility] CLIA [id number] [address] [place] [address] [place] Immature granulocytes (Bld) [#/Vol] 10*3/uL Normal <0.10 [facility] Comment on above: Order Comment: Speci men Type: BLOOD SPECIMEN Ordering Facility: [facility] Address: [address] [place] [address] Performed By: #### 5 7021-8 #### [facility] CLIA [id number] [address] [place] [address] [place] Immature granulocytes/100 WBC (Bld) 0.4 % Normal [facility] Comment on above: Order Comment: Speci men Type: BLOOD SPECIMEN Ordering Facility: [facility] Address: [address] [place] [address] Performed By: #### 5 7021-8 #### [facility] CLIA [id number] [address] [place] [address] [place] Lymphocytes (Bld) [#/Vol] 1.63 10*3/uL Normal 1.00-4.00 [facility] Comment on above: Order Comment: Speci men Type: BLOOD SPECIMEN Ordering Facility: [facility] Address: [address] [place] [address] Performed By: #### 5 7021-8 #### [facility] CLIA [id number] [address] [place] [address] [place] Lymphocytes/100 WBC (Bld) 29.3 % Normal [facility] Comment on above: Order Comment: Speci men Type: BLOOD SPECIMEN Ordering Facility: [facility] Address: [address] [place] [address] Performed By: #### 5 7021-8 #### [facility] CLIA [id number] [address] [place] [address] [place] MCH (RBC) [Entitic mass] 31.0 pg Normal 26.0-34.0 [facility] Comment on above: Order Comment: Speci men Type: BLOOD SPECIMEN Ordering Facility: [facility] Address: [address] [place] [address] Performed By: #### 5 7021-8 #### [facility] CLIA [id number] [address] [place] [address] [place] MCHC (RBC) [Mass/Vol] 33.9 g/dL Normal 30.5-36.0 [facility] Comment on above: Order Comment: Speci men Type: BLOOD SPECIMEN Ordering Facility: [facility] Address: [address] [place] [address] Performed By: #### 5 7021-8 #### [facility] CLIA [id number] [address] [place] [address] [place] MCV (RBC) [Entitic vol] 91.5 fL Normal 80.0-100.0 [facility] Comment on above: Order Comment: Speci men Type: BLOOD SPECIMEN Ordering Facility: [facility] Address: [address] [place] [address] Performed By: #### 5 7021-8 #### [facility] CLIA [id number] [address] [place] [address] [place] Monocytes (Bld) [#/Vol] 0.63 10*3/uL Normal <0.87 [facility] Comment on above: Order Comment: Speci men Type: BLOOD SPECIMEN Ordering Facility: [facility] Address: [address] [place] [address] Performed By: #### 5 7021-8 #### [facility] CLIA [id number] [address] [place] [address] [place] Monocytes/100 WBC (Bld) 11.3 % Normal [facility] Comment on above: Order Comment: Speci men Type: BLOOD SPECIMEN Ordering Facility: [facility] Address: [address] [place] [address] Performed By: #### 5 7021-8 #### [facility] CLIA [id number] [address] [place] [address] [place] Neutrophils (Bld) [#/Vol] 3.13 10*3/uL Normal 1.45-7.50 [facility] Comment on above: Order Comment: Speci men Type: BLOOD SPECIMEN Ordering Facility: [facility] Address: [address] [place] [address] Performed By: #### 5 7021-8 #### [facility] CLIA [id number] [address] [place] [address] [place] Neutrophils/100 WBC (Bld) 56.1 % Normal [facility] Comment on above: Order Comment: Speci men Type: BLOOD SPECIMEN Ordering Facility: [facility] Address: [address] [place] [address] Performed By: #### 5 7021-8 #### [facility] CLIA [id number] [address] [place] [address] [place] Nucleated RBC (Bld) [#/Vol] 10*3/uL Normal <0.01 [facility] Comment on above: Order Comment: Speci men Type: BLOOD SPECIMEN Ordering Facility: [facility] Address: [address] [place] [address] Performed By: #### 5 7021-8 #### [facility] CLIA [id number] [address] [place] [address] [place] Nucleated RBC/100 WBC (Bld) [Ratio] 0.0 /100 WBC Normal [facility] Comment on above: Order Comment: Speci men Type: BLOOD SPECIMEN Ordering Facility: [facility] Address: [address] [place] [address] Performed By: #### 5 7021-8 #### [facility] CLIA [id number] [address] [place] [address] [place] Platelet mean volume (Bld) [Entitic vol] 9.7 fL Normal 9.0-12.7 [facility] Comment on above: Order Comment: Speci men Type: BLOOD SPECIMEN Ordering Facility: [facility] Address: [address] [place] [address] Performed By: #### 5 7021-8 #### [facility] CLIA [id number] [address] [place] [address] [place] Platelets (Bld) [#/Vol] 207 10*3/uL Normal 150-400 [facility] Comment on above: Order Comment: Speci men Type: BLOOD SPECIMEN Ordering Facility: [facility] Address: [address] [place] [address] Performed By: #### 5 7021-8 #### [facility] CLIA [id number] [address] [place] [address] [place] RBC (Bld) [#/Vol] 5.16 10*6/uL Normal 4.20-6.00 [facility] Comment on above: Order Comment: Speci men Type: BLOOD SPECIMEN Ordering Facility: [facility] Address: [address] [place] [address] Performed By: #### 5 7021-8 #### [facility] CLIA [id number] [address] [place] [address] [place] WBC (Bld) [#/Vol] 5.57 10*3/uL Normal 3.70-11.00 [facility] Comment on above: Order Comment: Speci men Type: BLOOD SPECIMEN Ordering Facility: [facility] Address: [address] [place] [address] Performed By: #### 5 7021-8 #### [facility] CLIA [id number] [address] [place] [address] [place] Comprehensive metabolic 2000 panelon 12-06-2023 Albumin [Mass/Vol] 4.3 g/dL Normal 3.9-4.9 [facility] Comment on above: Order Comment: Speci men Type: BLOOD SPECIMEN Ordering Facility: [facility] Address: [address] [id number] Performed By: #### 2 4323-8, 04046-8 #### [facility] CLIA [id number] [address] [id number] [place] ALP [Catalytic activity/Vol] 55 U/L Normal 38-113 [facility] Comment on above: Order Comment: Speci men Type: BLOOD SPECIMEN Ordering Facility: [facility] Address: [address] [id number] Performed By: #### 2 4323-8, 22384-1 #### [facility] CLIA [id number] [address] [place], [place] [id number] [place] ALT [Catalytic activity/Vol] 16 U/L Normal 10-54 [facility] Comment on above: Order Comment: Speci men Type: BLOOD SPECIMEN Ordering Facility: [facility] Address: [address] [id number] Performed By: #### 2 4323-8, 77395-0 #### [facility] CLIA [id number] [address] [place] [address] [place] Anion gap [Moles/Vol] 9 mmol/L Normal 8-15 [facility] Comment on above: Order Comment: Speci men Type: BLOOD SPECIMEN Ordering Facility: [facility] Address: [address] [phone] Performed By: #### 2 4323-8, 99238-6 #### [facility] CLIA [id number] [address] [place], [place] [id number] [place] AST [Catalytic activity/Vol] 21 U/L Normal 14-40 [facility] Comment on above: Order Comment: Speci men Type: BLOOD SPECIMEN Ordering Facility: [facility] Address: [address] [phone] Performed By: #### 2 4323-8, 86334-9 #### [facility] CLIA [id number] [address] [place] [address] [place] Bilirubin [Mass/Vol] 0.4 mg/dL Normal 0.2-1.3 [facility] Comment on above: Order Comment: Speci men Type: BLOOD SPECIMEN Ordering Facility: [facility] Address: [address] [place] [address] Performed By: #### 2 4323-8, 31351-5 #### [facility] CLIA [id number] [address] [place] [address] [place] Calcium [Mass/Vol] 9.5 mg/dL Normal 8.5-10.2 [facility] Comment on above: Order Comment: Speci men Type: BLOOD SPECIMEN Ordering Facility: [facility] Address: [address] [place] [address] Performed By: #### 2 4323-8, #### [facility] CLIA [id number] [address] [place] [address] [place] Chloride [Moles/Vol] 105 mmol/L Normal 98-107 [facility] Comment on above: Order Comment: Speci men Type: BLOOD SPECIMEN Ordering Facility: [facility] Address: [address] [place] [address] Performed By: #### 2 4323-8, 79551-4 #### [facility] CLIA [id number] [address] [place] [address] [place] CO2 [Moles/Vol] 27 mmol/L Normal 22-30 [facility] Comment on above: Order Comment: Speci men Type: BLOOD SPECIMEN Ordering Facility: [facility] Address: [address] [place] [address] Performed By: #### 2 4323-8, 05803-1 #### [facility] CLIA [id number] [address] [id number] [address] [place] Creatinine [Mass/Vol] 0.99 mg/dL Normal 0.73-1.22 [facility] Comment on above: Order Comment: Amador quezada Type: BLOOD SPECIMEN Ordering Facility: [facility] Address: [address] [place] [address] Performed By: #### 2 4323-8, 69696-6 #### [facility] CLIA [id number] [address] [place] [address] [facility] [place] Creatinine and Glomerular filtration rate.predicted panel (S/P/Bld) 88 mL/min/1.73m??? Normal >=60 [facility] Comment on above: Order Comment: Amador quezada Type: BLOOD SPECIMEN Ordering Facility: [facility] Address: [address] [place] [address] Result Comment: Ese mated Glomerular Filtration Rate (eGFR) is calculated using the 2020 CKD-EPI creatinine equation. This equation utilizes serum creatinine, sex, and age as parameters. The creatinine assay has traceable calibration to isotope dilution-mass spectrometry. Refer to KDIGO guidelines for clinical interpretation. In patients with unstable renal function, e.g. those with acute kidney injury, the eGFR may not accurately reflect actual GFR. Performed By: #### 2 4323-8, 53611-1 #### [facility] CLIA [id number] [address] [place] [address] [place] Glucose [Mass/Vol] 98 mg/dL Normal 74-99 [facility] Comment on above: Order Comment: Amador quezada Type: BLOOD SPECIMEN Ordering Facility: [facility] Address: [address] [place] [address] Result Comment: The [place] Diabetes Association (ADA) provides guidance for cutoff values for fasting glucose and random glucose. The ADA defines fasting as no caloric intake for at least 8 hours. Fasting plasma glucose results between 100 to 125 mg/dL indicate increased risk for diabetes (prediabetes). Fasting plasma glucose results greater than or equal to 126 mg/dL meet the criteria for diagnosis of diabetes. In the absence of unequivocal hyperglycemia, results should be confirmed by repeat testing. In a patient with classic symptoms of hyperglycemia or hyperglycemic crisis, random plasma glucose results greater than or equal to 200 mg/dL meet the criteria for diagnosis of diabetes. Reference: Standards of Medical Care in Diabetes 2016, [place] Diabetes Association. Diabetes Care. 2016.39(Suppl 1). Performed By: #### 2 4323-8, 17017-3 #### [facility] CLIA [id number] [address] [id number] [place] Potassium [Moles/Vol] 4.3 mmol/L Normal 3.7-5.1 [facility] Comment on above: Order Comment: Speci men Type: BLOOD SPECIMEN Ordering Facility: [facility] Address: [address] [place] [address] Performed By: #### 2 4323-8, 66455-1 #### [facility] CLIA [id number] [address] [place] [address] [place] Protein [Mass/Vol] 6.7 g/dL Normal 6.3-8.0 [facility] Comment on above: Order Comment: Speci men Type: BLOOD SPECIMEN Ordering Facility: [facility] Address: [address] [place] [address] Performed By: #### 2 4323-8, 43580-9 #### [facility] CLIA [id number] [address] [place] [address] [place] Sodium [Moles/Vol] 141 mmol/L Normal 136-144 [facility] Comment on above: Order Comment: Speci men Type: BLOOD SPECIMEN Ordering Facility: [facility] Address: [address] [phone] Performed By: #### 2 4323-8, 36236-2 #### [facility] CLIA [id number] [address] [place] [address] [place] Urea nitrogen [Mass/Vol] 14 mg/dL Normal 9-24 [facility] Comment on above: Order Comment: Speci men Type: BLOOD SPECIMEN Ordering Facility: [facility] Address: [address] [phone] Performed By: #### 2 4323-8, 55987-6 #### [facility] CLIA [id number] [address] [place] [address] [place] Lipid 1996 panelon 4 Cholesterol [Mass/Vol] 190 mg/dL Normal <200 [facility] Comment on above: Order Comment: Speci men Type: BLOOD SPECIMEN Ordering Facility: [facility] Address: [address] [place] [address] Result Comment: <200 mg/dL, Desirable 200-239 mg/dL, Borderline high >239 mg/dL, High Performed By: #### 2 4323-8, 81550-1 #### [facility] CLIA [id number] [address] [place] [address] [place] Cholesterol in HDL [Mass/Vol] 43 mg/dL Normal >39 [facility] Comment on above: Order Comment: Speci men Type: BLOOD SPECIMEN Ordering Facility: [facility] Address: [address] [place] [address] Result Comment: 40-5 9 mg/dL, Acceptable >59 mg/dL, High: Negative risk factor for coronary heart disease <40 mg/dL, Low: Positive risk factor for coronary heart disease Performed By: #### 2 4323-8, 61307-3 #### [facility] CLIA [id number] [address] [place] [address] [place] Cholesterol in LDL [Mass/Vol] 136 mg/dL High <100 [facility] Comment on above: Order Comment: Speci men Type: BLOOD SPECIMEN Ordering Facility: [facility] Address: [address] [place] [address] Result Comment: <100 mg/dL, Optimal 100-129 mg/dL, Near optimal/above optimal 130-159 mg/dL, Borderline high 160-189 mg/dL, High >189 mg/dL, Very high Secondary prevention optimal LDL Cholesterol levels are recommended to be < 70 mg/dL Performed By: #### 2 4323-8, 54098-9 #### [facility] CLIA [id number] [facility] [place] [address] [place] Cholesterol in LDL/Cholesterol in HDL [Mass ratio] 3.16 {ratio} High <2.54 [facility] Comment on above: Order Comment: Amador quezada Type: BLOOD SPECIMEN Ordering Facility: [facility] Address: [address] [place] [address] Result Comment: Lyla palencia: 1. National Cholesterol Education Program ATP III Guideline At-A-Glance Quick Desk Reference: National Heart, Lung, and Blood [place]. National Institutes of Health. 2001: NIH Publication No. 01-3305. 2. An International Atherosclerosis Society position paper: global recommendations for the management of dyslipidemia: executive summary, Atherosclerosis. 2014: 232(2):410-413. Performed By: #### 2 4323-8, 65644-7 #### [facility] CLIA [id number] [address] [place] [address] [place] Cholesterol in VLDL [Mass/Vol] 11 mg/dL Normal <30 [facility] Comment on above: Order Comment: Amador quezada Type: BLOOD SPECIMEN Ordering Facility: [facility] Address: [address] [place] [address] Performed By: #### 2 4323-8, 60137-6 #### [facility] CLIA [id number] [address] [place] [address] [place] Cholesterol non HDL [Mass/Vol] 147 mg/dL High <130 [facility] Comment on above: Order Comment: Amador quezada Type: BLOOD SPECIMEN Ordering Facility: [facility] Address: [address] [place] [address] Result Comment: <130 mg/dL, Optimal 130-159 mg/dL, Near optimal/above optimal 160-189 mg/dL, Borderline high 190-219 mg/dL, High >219 mg/dL, Very high Secondary prevention optimal non HDL Cholesterol levels are recommended to be <100 mg/dL Performed By: #### 2 4323-8, 72826-3 #### [facility] CLIA [id number] [address] [place] [address] [place] Cholesterol.total/ Cholesterol in HDL [Mass ratio] 4.42 {ratio} Normal <5.10 [facility] Comment on above: Order Comment: Speci men Type: BLOOD SPECIMEN Ordering Facility: [facility] Address: [address] [place] [address] Performed By: #### 2 4323-8, 30930-3 #### [facility] CLIA [id number] [address] [place] [address] [place] FASTING TIME 12 hrs Normal [facility] Comment on above: Order Comment: Speci men Type: BLOOD SPECIMEN Ordering Facility: [facility] Address: [address] [place] [address] Performed By: #### 2 4323-8, 90540-3 #### [facility] CLIA [id number] [address] [place] [address] [place] Triglyceride [Mass/Vol] 55 mg/dL Normal <150 [facility] Comment on above: Order Comment: Speci men Type: BLOOD SPECIMEN Ordering Facility: [facility] Address: [address] [place] [address] Result Comment: <150 mg/dL, Normal 150-199 mg/dL, Borderline high 200-499 mg/dL, High >499 mg/dL, Very high Performed By: #### 2 4323-8, 16037-1 #### [facility] CLIA [id number] [address] [place] [address] [place] PSA/PROSTATE SPECIFIC ANTIGE N SCREENINGon 12-06-2023 Prostate specific Ag [Mass/Vol] 0.49 ng/mL Normal <2.60 [facility] Comment on above: Order Comment: Speci men Type: BLOOD SPECIMEN Ordering Facility: [facility] Address: [address] [place] [address] Result Comment: Tota l PSA test methodology used is the Electrochemiluminescence Immunoassay by [employer]. Total PSA values by differing methodologies cannot be interchanged. Performed By: #### P SAS1 #### [facility] CLIA [id number] [address] [place], [place] [address] [address] [place] CNOVon 11-05-2023 CNOV Office Visit (FAMPWS ) CHITRA GOMEZ ([id number]) 1965 M Date Time Provider Department 11/05/23 9:00 AM [facility] During your visit today, we recorded the following information about you: Pulse Respiration Blood pressure Weight 74/minute 16/minute 117/78 95.7 kg Height 1.727 m Ness Hayes MD 11/05/2023 10:42 AM Signed Chief Complaint Patient presents with: Physical HPI Chitra Gomez is a 58 year old male who presents here today for an Annual Wellness. Pt here today for routine Wellness visit. Daughter lives in [place]. She has a 1 year old. She works for [employer]. Denies any stomach, bowel or urinary issues. No ED issues. Denies any chest pain, sob or dizziness. Tries to watch his diet but could do better on discipline. Exercises some but admits that he isn't as active as he could be. He is a night runner and when he runs he uses treadmill which is easier on the back and knees. He admits to having less energy. He sleeps well at night. He does take 30 minute naps on weekend. He has been putting on more weight and not able to lose the weight as easily. Wondering about possible decreased testosterone. At last visit pt c/o left knee pain, which PT thought was due to his low back. Was treated with Mobic 15 mg once daily and did PT. He is no longer on Mobic. He admits to not doing the stretches for the knee regularly, typically when the knee starts to bother him. He has some lower back pain typically if he lifts hands over head, no pain with bending over or picking up things. Does not keep him from doing his activities. He will uses some Aleve if he has been working hard physically, takes as needed. The back issue caused nerve issue to the knee which causes the knee pain. Allergies: has seen eye doctor who told him he has eye allergies and is on drops. He uses OTC allergy meds and flonase during allergy season. That helped. He does feel like he has some SOB and chest heaviness in the mornings and uses an Albuterol inhaler 2 puffs in the mornings which seems to help through the day. Hx of pneumonia. Past medical history, appointments, medications, allergies reviewed. Previous Medical History No past medical history on file. Previous Surgical History PAST SURGICAL HISTORY 10/04/2020: COLONOSCOPY FLX DX W/COLLJ SPEC WHEN PFRMD 1995: PAST SURGICAL HISTORY OF; Left Comment: Left ACL surgery 10/06/2018: PAST SURGICAL HISTORY OF Comment: widom teeth removed Family History FAMILY HISTORY Problem Relation Age of Onset Breast Cancer Mother Prostate Cancer Father before age 60 Patient Allergies ALLERGIES No Known Allergies Current Medications Current Outpatient Medications on File Prior to Visit Medication Sig meloxicam (MOBIC) 15 mg tablet Take 1 tablet by mouth once daily. With food. promethazine (PHENERGAN) 25 mg tablet Take 1 tablet by mouth every 6 hours as needed. (Patient not taking: Reported on 05/17/2021 ) No current facility-administered medications on file prior to visit. Social History Social History Tobacco Use Smoking status: Never Smokeless tobacco: Never Substance Use Topics Alcohol use: No Drug use: No EXAM: BP 117/78 Pulse 74 Resp 16 Ht 172.7 cm (5' 8) Wt 95.7 kg (210 lb 15.7 oz) SpO2 100% BMI 32.08 kg/m? General Appearance: Well appearing, alert, in no acute distress, well-hydrated, well nourished.. Neck: Supple, no adenopathy; thyroid symmetric, normal size. Lungs: Lungs clear to auscultation. No wheezing, rhonchi, rales.. Heart: RRR without murmur, gallop, or rubs. No ectopy. Abdomen: Normal abdominal exam, Abdomen soft, non-tender. Bowel sounds normal. No masses, organomegaly. Health Maintenance List Depression Screening Never done Anxiety Screening Never done DTaP,Tdap,Td Vaccine(1 - Tdap) Never done Hepatitis B Vaccine(1 of 3 - 19+ 3-dose series) Never done Shingrix Vaccine(1 of 2) Never done Covid-19 Vaccine(1 - season) Never done Hepatitis C Screening due on 11/04/2024 HIV Screening due on 11/04/2024 Influenza Vaccine(1) due on 11/07/2023 Prostate Cancer Screening Discussion due on 12/11/2023 Diabetes Screening due on 03/14/2024 Lipid Screening due on 11/07/2026 Colorectal Cancer Screening due on 10/04/2030 Data reviewed None ASSESSMENT/PLAN: ASSESSMENT/PLAN: 1. Wellness examination - ICD9: V70.0, ICD10: Z00.00 (primary diagnosis) - Counseled on healthy diet and regular exercise - Discussed need for and benefit of weight loss. BMI 32.08 kg/(m2) - Follow up for annual exam in one year 2. Screening for depression - ICD9: V79.0, ICD10: Z13.31 - DEPRESSION SCREENING 3. Encounter for screening examination for other mental health and behavioral disorders - ICD9: V79.8, ICD10: Z13.39 - ANXIETY SCREENING 4. Fatigue, unspecified type - ICD9: 780.79, ICD10 (more content not included)... Normal [facility] XR Chest PA and Lateralon IMPRESSION: Stable exam with no acute radiographic abnormality. Correction Officer Supervisor: GURVINDER Transcribe Date/Time: Mar 20 2023 12:00P Dictated by : TAMMY SINGLETON MD This examination was interpreted and the report reviewed and electronically signed by: TAMMY SINGLETON MD on Mar 20 2023 12:00PM [facility] DIVISION OF RADIOLOGY * * *Final Report* * * DATE OF EXAM: Mar 20 2023 11:35AM WOX [id number] - XR CHEST 2V FRONTAL/LAT / PROCEDURE REASON: Acute cough * * * * Physician Interpretation * * * * EXAMINATION: CHEST RADIOGRAPH (2 VIEW FRONTAL & LATERAL) CLINICAL HISTORY: Acute cough MQ: XC2_6 EXAM DATE/TIME: 03/20/2023 11:35 AM COMPARISON: 10/28/2020. RESULT: Lines, tubes, and devices: None. Lungs and pleura: No consolidation. No lung mass. No pleural effusion. No pneumothorax. Cardiomediastinal silhouette: Normal cardiomediastinal silhouette. Bones and soft tissues: Unremarkable. DIVISION OF RADIOLOGY Provider, Nazanin broosk [place] - 03/20/2023 * * *Final Report* * * DATE OF EXAM: Mar 20 2023 11:35AM WOX [id number] - XR CHEST 2V FRONTAL/LAT / PROCEDURE REASON: Acute cough * * * * Physician Interpretation * * * * EXAMINATION: CHEST RADIOGRAPH (2 VIEW FRONTAL & LATERAL) CLINICAL HISTORY: Acute cough MQ: XC2_6 EXAM DATE/TIME: 03/20/2023 11:35 AM COMPARISON: 10/28/2020. RESULT: Lines, tubes, and devices: None. Lungs and pleura: No consolidation. No lung mass. No pleural effusion. No pneumothorax. Cardiomediastinal silhouette: Normal cardiomediastinal silhouette. Bones and soft tissues: Unremarkable. IMPRESSION IMPRESSION: Stable exam with no acute radiographic abnormality. Correction Officer Supervisor: PSCB Transcribe Date/Time: Mar 20 2023 12:00P Dictated by : TAMMY SINGLETON MD This examination was interpreted and the report reviewed and electronically signed by: TAMMY SINGLETON MD on Mar 20 2023 12:00PM EST [facility] Radiology Study observation (narrative) [facility] XR Chest PA and LateralOrder ed By: [facility] Provider on 03-20-2023 [facility] 12 Lead EKGon 10-29-2020 12 Lead EKG [facility] [address] [place] [address] 12 Lead EKG 10/29/20 1334 MR#: [id number] Acct: [id number] Name: CHITRA GOMEZ Rep #: [id number] : 1965 55 From: Austin Sanchez MD Attending Dr: Status: DEP ER Ordering Dr: Phillip Griggs MD Date: 10/29/20 Location: ED Sex: M C Admitted: Test Reason : CHEST PAIN Blood Pressure : / mmHG Vent. Rate : 081 BPM Atrial Rate : 081 BPM P-R Int : 132 ms QRS Dur : 088 ms QT Int : 356 ms P-R-T Axes : 060 065 035 degrees QTc Int : 413 ms Normal sinus rhythm Normal ECG Confirmed by LAURA CHRISTIAN, AUSTIN ([id number]), scientific editor SANDI STILL ([id number]) on 10/31/2020 10:03:47 AM Referred By: Confirmed By:AUSTIN SANCHEZ MD 10/31/20 1003 Date Austin Sanchez MD CC: Dr. Phillip Griggs MD; Dr. Ness Hayes MD Signed Normal [facility] Basic Metabolic Profile (BMP )on 10-29-2020 BUN/CRE 11.8 RATIO Normal 10-20 [facility] Comment on above: Performed By: #### L 100.0100, L500.2500, L300.8000 #### [facility] [address] [place], [address] CA,Total 8.4 mg/dL Low 8.5-10.1 [facility] Comment on above: Performed By: #### L 100.0100, L500.2500, L300.8000 #### [facility] [address] [place], [address] Chloride [Moles/Vol] 102 mmol/L Normal 98-107 [facility] Comment on above: Performed By: #### L 100.0100, L500.2500, L300.8000 #### [facility] [address] [place], [address] CO2 [Moles/Vol] 28.0 mmol/L Normal 21.0-32.0 [facility] Comment on above: Performed By: #### L 100.0100, L500.2500, L300.8000 #### [facility] [address] [place], [address] Creatinine [Mass/Vol] 1.10 mg/dL Normal 0.70-1.30 [facility] Comment on above: Result Comment: The validity of the calculated GFR GFRAA in patients over 70 years has not been determined. Clinical correlation is essential. Performed By: #### L 100.0100, L500.2500, L300.8000 #### [facility] [address] [place], [address] ECRCL 73.41 ml/min Normal [facility] Comment on above: Performed By: #### L 100.0100, L500.2500, L300.8000 #### [facility] [address] [place], [address] EST GFR - AA 89 mL/min Normal >60 [facility] Comment on above: Result Comment: Afri can Brazilian GFR Calc Performed By: #### L 100.0100, L500.2500, L300.8000 #### [facility] [address] [place], [address] GAP 6 Normal 5-15 [facility] Comment on above: Performed By: #### L 100.0100, L500.2500, L300.8000 #### [facility] [address] [place], [address] GFR/1.73 sq M.predicted among non-blacks MDRD (S/P/Bld) [Vol rate/Area] 74 mL/min/{1.73_m2} Normal >60 [facility] Comment on above: Result Comment: Non- GFR Calc Performed By: #### L 100.0100, L500.2500, L300.8000 #### [facility] [address] [place], [address] Glucose [Mass/Vol] 94 mg/dL Normal 74-106 [facility] Comment on above: Result Comment: Mita wood note revised GLUCOSE reference range effective 2017. Performed By: #### L 100.0100, L500.2500, L300.8000 #### [facility] [address] [place], [address] Potassium [Moles/Vol] 4.2 mmol/L Normal 3.5-5.1 [facility] Comment on above: Performed By: #### L 100.0100, L500.2500, L300.8000 #### [facility] [address] [place], [address] Sodium [Moles/Vol] 136 mmol/L Normal 136-145 [facility] Comment on above: Performed By: #### L 100.0100, L500.2500, L300.8000 #### [facility] [address] [place], [address] Urea nitrogen [Mass/Vol] 13 mg/dL Normal 7-18 [facility] Comment on above: Performed By: #### L 100.0100, L500.2500, L300.8000 #### [facility] [address] [place], [address] CBC W/Diff, Automatedon 08-2 Absolute Lymph 0.72 X10 3/uL Low 0.83-4.51 [facility] Comment on above: Performed By: #### L 100.0100, L500.2500, L300.8000 #### [facility] [address] [place], [address] Absolute Neut 3.0 X10 3/uL Normal 2.0-7.7 [facility] Comment on above: Performed By: #### L 100.0100, L500.2500, L300.8000 #### [facility] [address] [place], [address] Basophils/100 WBC (Bld) 0.5 % Normal 0-1 [facility] Comment on above: Performed By: #### L 100.0100, L500.2500, L300.8000 #### [facility] [address] [place], [address] Eosinophils/100 WBC (Bld) 0.0 % Normal 0-5 [facility] Comment on above: Performed By: #### L 100.0100, L500.2500, L300.8000 #### [facility] [address] [place], [address] Erythrocyte distribution width (RBC) [Ratio] 12.0 % Normal 11.6-14.6 [facility] Comment on above: Performed By: #### L 100.0100, L500.2500, L300.8000 #### [facility] [address] [place], [address] Hematocrit (Bld) [Volume fraction] 47.0 % Normal 40-54 [facility] Comment on above: Performed By: #### L 100.0100, L500.2500, L300.8000 #### [facility] [address] [place], [address] Hemoglobin (Bld) [Mass/Vol] 16.0 g/dL Normal 13.0-16.5 [facility] Comment on above: Performed By: #### L 100.0100, L500.2500, L300.8000 #### [facility] [address] [place], [address] IG% 0.500 Normal 0.0-0.9 [facility] Comment on above: Result Comment: IG% - Immature Granulocytes (promyelocytes, myelocytes and metamyelocytes) > 1% indicates that a LEFT SHIFT is Present. Performed By: #### L 100.0100, L500.2500, L300.8000 #### [facility] [address] [place], [address] Lymphocytes/100 WBC (Bld) 17.1 % Low 19-41 [facility] Comment on above: Performed By: #### L 100.0100, L500.2500, L300.8000 #### [facility] [address] [place], [address] MCH (RBC) [Entitic mass] 30.7 pg Normal 27.0-32.0 [facility] Comment on above: Performed By: #### L 100.0100, L500.2500, L300.8000 #### [facility] [address] [place], [address] MCHC (RBC) [Mass/Vol] 34.0 g/dL Normal 32-36 [facility] Comment on above: Performed By: #### L 100.0100, L500.2500, L300.8000 #### [facility] [address] [place], [address] MCV (RBC) [Entitic vol] 90.0 fL Normal 80-94 [facility] Comment on above: Performed By: #### L 100.0100, L500.2500, L300.8000 #### [facility] [address] [place], [address] Monocytes/100 WBC (Bld) 11.1 % High 0-10 [facility] Comment on above: Performed By: #### L 100.0100, L500.2500, L300.8000 #### [facility] [address] [place], [address] Neutrophils/100 WBC (Bld) 70.8 % High 47-70 [facility] Comment on above: Performed By: #### L 100.0100, L500.2500, L300.8000 #### [facility] [address] [place], [address] Nucleated RBC (Bld) [#/Vol] 0 10*3/uL Normal 0-5 [facility] Comment on above: Performed By: #### L 100.0100, L500.2500, L300.8000 #### [facility] [address] [place], [address] Platelet mean volume (Bld) [Entitic vol] 9.3 fL Normal 6.2-12.0 [facility] Comment on above: Performed By: #### L 100.0100, L500.2500, L300.8000 #### [facility] [address], [address] Platelets (Bld) [#/Vol] 145 10*3/uL Low 150-450 [facility] Comment on above: Performed By: #### L 100.0100, L500.2500, L300.8000 #### [facility] [address] [place], [address] RBC (Bld) [#/Vol] 5.22 10*6/uL Normal 4.6-6.2 [facility] Comment on above: Performed By: #### L 100.0100, L500.2500, L300.8000 #### [facility] [address], [address] RDW SD 39.8 fl Normal 35.1-43.9 [facility] Comment on above: Performed By: #### L 100.0100, L500.2500, L300.8000 #### [facility] [address], [address] WBC (Bld) [#/Vol] 4.2 10*3/uL Low 4.4-11.0 [facility] Comment on above: Performed By: #### L 100.0100, L500.2500, L300.8000 #### [facility] [address] [place], [address] CTA Chest W/WO Contraston CTA Chest W/WO Contrast [facility] Imaging Services [address] [place] [address] CTA Chest W/WO Contrast MR#: [id number] Acct: [id number] Name: CHITRA GOMEZ Rep #: [id number] : 1965 M 55 From: Amadou kurtz MD PCP: Dr. Ness Hayes MD Status: REG ER Study: CTA Chest W/WO Contrast Date of Exam: 10/29/20 Exam# [id number] Ordering Dr: Phillip Griggs MD STUDY: CTA CHEST REASON FOR EXAM: Male, 55 years old. covid, sob, elevated d-dimer RADIATION DOSAGE (If Supplied By Facility): CTDIvol = ( 10.50 ) mGy, DLP = ( 368.96 ) mGycm TECHNIQUE: The examination was performed with the intravenous administration of IV 100ML ISOVUE 370. Post-processing of the angiographic images was performed, with multiplanar reformation and 3D reconstruction. Individualized dose optimization techniques were used for this CT. COMPARISON: None. FINDINGS: Normal enhancement of the main pulmonary artery and right and left pulmonary arteries. Normal enhancement of the bilateral peripheral pulmonary arteries. There is no demonstrated pulmonary embolism. Normal thoracic aorta and visualized great vessels. There is no demonstrated aortic dissection. Normal heart and pericardium. Normal mediastinum. Normal hilar regions. Normal visualized trachea and bronchi. The lungs are well expanded. There is multifocal patchy infiltrates in the preferential peripheral distribution involving both upper lobes and lower lobes. This is more pronounced in the left lower lobe. Normal pleura. Normal chest wall structures. There are degenerative changes of thoracic spine. Normal visualized upper abdomen. CT/CTA Chest W/WO Contrast IMPRESSION: Bilateral pulmonary infiltrates and a preferential lateral distribution as described suggestive of a pneumonitis associated with Covid. No evidence of pulmonary embolism. Electronically Signed: Aamdou Schreiber MD at 15:00 EDT , Service support , CC: Dr. Phillip Griggs MD; Dr. Ness Hayes MD Correction Officer Supervisor: Signed Normal [facility] Chest 1 View (Portable)on Chest 1 View (Portable) [facility] Imaging Services [address] [place] [address] Chest 1 View (Portable) MR#: [id number] Acct: [id number] Name: CHITRA GOMEZ Rep #: [id number] : 1965 M 55 From: Amadou kurtz MD PCP: Dr. Ness Hayes MD Status: PRE ER Study: Chest 1 View (Portable) Date of Exam: 10/29/20 Exam# [id number] Ordering Dr: Phillip Griggs MD STUDY: X-RAY CHEST REASON FOR EXAM: Male, 55 years old. covid sob TECHNIQUE: Single AP portable view of the chest. COMPARISON: None. FINDINGS: Bilateral pulmonary infiltrates worse in the right hemithorax. The infiltrates in the right hemithorax have a preferentially peripheral distribution suggestive of Covid pneumonitis. There is no demonstrated pleural abnormality. Normal size heart. Normal mediastinum and jolly. Normal visualized pulmonary arteries. Normal visualized aortic arch and descending thoracic aorta. Normal visualized thoracic spine. Normal visualized ribs, clavicles, and shoulders. There is no demonstrated abnormality of the visualized soft tissue structures of the upper abdomen. RAD/Chest 1 View (Portable) IMPRESSION: Bilateral pulmonary infiltrates worse in the right hemithorax. Electronically Signed: Amadou Schreiber MD at 14:14 EDT , Service support , CC: Dr. Phillip Griggs MD; Dr. Ness Hayes MD Correction Officer Supervisor: Signed Normal [facility] D-Dimer Quantitative (DVT/PE )on 10-29-2020 D-DIMER QUANT 1.12 FEU/ug/m Invalid Interpretation Code 0.27-0.49 [facility] Comment on above: Order Comment: CRITI ELLEN VALUE VERIFIED. CALLED TO DAVID BARROS 10/29/20 Trena6 Tawanna Randall. RESULTS READ BACK BY SAME . Result Comment: D-Di valdemar ELEVATED (>0.49): Additional studies and clinical assessments are indicated to conclude diagnosis of: Deep Vein Thrombosis (DVT) or Pulmonary Embolism (PE) Performed By: #### L 100.0100, L500.2500, L300.8000 #### [facility] [address] [place], [address] Emergency Department Summary on 10-29-2020 Emergency Department Summary [facility] Medical Records Department [address] [place] [address] Emergency Department Summary 10/29/20 MR#: [id number] Acct: [id number] Name: CHITRA GOMEZ Rep #: [id number] : 1965 55 From: Phillip Griggs MD PCP: Dr. Ness Hayes MD Status:REG ER Location: ED HPI History of Present Illness Chief Complaint: General Illness Informant: patient Onset/Context/Timing Onset: Days (8) Context: Gradual Onset Timing: Continuous Quality: Fatigued Location: All over Current Severity: Severe Maximum Severity: Severe Worsened by: Nothing Relieved by: Nothing Associated Symptoms Associated Symptoms: Short of breath x couple days Narrative Narrative: Patient has had Covid symptoms for 8 days he tested positive last week as an outpatient, now getting dyspneic for the last couple days. No history of lung disease or other medical problems. He was not vaccinated prior to getting Covid. PFSH PFSH no medical history Home Medications albuterol sulfate [Ventolin HFA] 1 - 2 puff INHALATION Q4H PRN PRN #1 inhaler 10/29/20 [Rx Last Taken Unknown] ondansetron 8 mg PO Q8H PRN PRN #20 tab 10/29/20 [Rx Last Taken Unknown] promethazine 25 mg PO Q6H PRN 10/29/20 [History Last Taken Unknown] Allergy/AdvReac Type Severity Reaction Status Date / Time No Known Allergies Allergy Verified 10/29/20 12:41 Surgical History (Updated 10/29/20 @ 15:40 by Eliu Corbett) History of arthroscopic knee surgery no surgical history Social History Smoking Status: Never smoker ROS ROS ED Constitutional Constitutional ED: Reports body ache(s), malaise and weakness; Denies chills or fever(s) Eyes Eyes: Denies change in vision or diplopia ENT ENT ED: Denies rhinorrhea or sore throat Cardiovascular Cardiovascular: Denies chest pain or palpitations Respiratory/Chest Respiratory/Chest: Reports cough and dyspnea Gastrointestinal Gastrointestinal: Reports diarrhea; Denies abdominal pain, nausea or vomiting Genitourinary Genitourinary ED: Denies dysuria or hematuria Musculoskeletal Musculoskeletal: Reports myalgias; Denies back pain or neck pain Integumentary Denies abscess or rash Neurologic Neurologic: Denies headache(s), paresthesias or weakness Psychiatric Psychiatric: Denies anxiety or suicidal thoughts EXAM Physical Exam Const Vital Signs: 10/29/20 12:42 10/29/20 15:38 10/29/20 15:42 Temperature 99.9 F H Temperature Source Temporal Pulse Rate 85 76 Respiratory Rate 18 18 Respiratory Effort Normal Blood Pressure 125/80 H Blood Pressure Mean 95 Pulse Ox 95 94 Oxygen Delivery Method Room Air Room Air Positive well nourished and well developed General Appearance ED: well developed and NAD HEENT Reports moist mucous membranes normocephalic and atraumatic Eyes PERRL and EOMs intact bilaterally Neck full ROM and supple Resp normal respiratory effort and clear to auscultation bilaterally Cardio regular rate, regular rhythm and no murmurs GI non-tender and non-distended Auscultation: normoactive bowel sounds Palpation: soft Back/Spine no CVA tenderness General Back: other FROM Extremity normal to inspection General Extremety ED: Negative for edema, pulses abnormal or tenderness General Extremity: Negative for edema or pulses abnormal Neuro oriented x3, CN's II-XII intact bilaterally and no sensory deficits noted Sensorium / Orientation: awake and alert Motor Exam: strength 5/5 throughout Skin no rashes or lesions noted and no wounds MDM MDM MDM Narrative Medical decision making narrative: D-dimer was elevated so CT angiography was performed which shows no pulmonary embolus. Covid pneumonia is noted. His pulse ox did not go below 94 while here in the emergency department. His nausea was treated. At this time he is a healthy 55-year-old male who does not meet any indication for admission for Covid, nor does he meet any indications for monoclonal antibody infusion. At this time I recommend supportive care and watching his oxygen saturations at home. It appears that he was seen at urgent care prior to this and placed on Zithromax and Augmentin for reasons that are unknown. He confirms that he did not have any other positive test such as strep, urine, etc. As long as that is the case I recommend stopping these medications since he is only had 1 dose of each, and continuing to promethazine as needed although he states it did not work a lot so we will prescribe him Zofran in addition to an albuterol inhaler to use as needed. We discussed reasons to return especially pulse ox staying in the 80% range. Lab Data Attestation: I reviewed the patient's lab results. Labs: Laboratory Results - last 24 hr 10/29/20 10/29/20 10/29/20 13:46 13:46 13:46 WBC 4.2 L RBC 5.22 Hg (more content not included)... Normal [facility] XR Chest PA and Lateralon IMPRESSION: Patchy peripheral predominant airspace opacities concerning for multifocal atypical pneumonia including viral etiologies. Correction Officer Supervisor: GURVINDER Transcribe Date/Time: Oct 28 2020 3:48P Dictated by : MARRY ROOT MD This examination was interpreted and the report reviewed and electronically signed by: MARRY ROOT MD on Oct 28 2020 3:49PM [facility] DIVISION OF RADIOLOGY * * *Final Report* * * DATE OF EXAM: Oct 28 2020 3:46PM WOX [id number] - XR CHEST 2V FRONTAL/LAT / PROCEDURE REASON: multiple diagnoses * * * * Physician Interpretation * * * * EXAMINATION: CHEST RADIOGRAPH (2 VIEW FRONTAL & LATERAL) CLINICAL HISTORY: Fatigue, unspecified type Cough MQ: XC2_6 EXAM DATE/TIME: 10/28/2020 3:46 PM COMPARISON: No relevant prior studies available. RESULT: Lines, tubes, and devices: None. Lungs and pleura: Patchy bilateral, peripheral predominant airspace opacities. No pleural effusion or pneumothorax. Cardiomediastinal silhouette: Normal cardiomediastinal silhouette. Bones and soft tissues: Degenerative changes are present within the thoracic spine. DIVISION OF RADIOLOGY Provider, [facility] Evangelist [facility] - 10/28/2020 * * *Final Report* * * DATE OF EXAM: Oct 28 2020 3:46PM WOX [id number] - XR CHEST 2V FRONTAL/LAT / PROCEDURE REASON: multiple diagnoses * * * * Physician Interpretation * * * * EXAMINATION: CHEST RADIOGRAPH (2 VIEW FRONTAL & LATERAL) CLINICAL HISTORY: Fatigue, unspecified type Cough MQ: XC2_6 EXAM DATE/TIME: 10/28/2020 3:46 PM COMPARISON: No relevant prior studies available. RESULT: Lines, tubes, and devices: None. Lungs and pleura: Patchy bilateral, peripheral predominant airspace opacities. No pleural effusion or pneumothorax. Cardiomediastinal silhouette: Normal cardiomediastinal silhouette. Bones and soft tissues: Degenerative changes are present within the thoracic spine. IMPRESSION IMPRESSION: Patchy peripheral predominant airspace opacities concerning for multifocal atypical pneumonia including viral etiologies. Correction Officer Supervisor: PSCB Transcribe Date/Time: Oct 28 2020 3:48P Dictated by : MARRY ROOT MD This examination was interpreted and the report reviewed and electronically signed by: MARRY ROOT MD on Oct 28 2020 3:49PM EST [facility] Radiology Study observation (narrative) [facility] XR Chest PA and LateralOrder ed By: [facility] Provider on 10-28-2020 [facility] Vital Signs Date Time Vital Sign Value Performing Clinician Jaquelin mckenna 09-01-2024 08:43-0400 Body mass index (BMI) [Ratio] 32.18 kg/m2 Paz Ambriz APRN.CNP Work Phone: [facility] 09-01-2024 08:43-0400 Body weight 96 kg Paz Ambriz APRN.CNP Work Phone: [facility] 09-01-2024 08:43-0400 Diastolic blood pressure 74 mm[Hg] Paz Ambriz APRN.CNP Work Phone: [facility] 09-01-2024 08:43-0400 Heart rate 69 /min Paz Ambriz APRN.CNP Work Phone: [facility] 09-01-2024 08:43-0400 Systolic blood pressure 128 mm[Hg] Paz Ambriz APRN.CNP Work Phone: [facility] 08-25-2024 16:11-0400 Body mass index (BMI) [Ratio] 32.68 kg/m2 Paz Ambriz APRN.CNP Work Phone: [facility] 08-25-2024 16:11-0400 Body temperature 98.71 [degF] Paz Ambriz APRN.DANCE ENTERTAINER Work Phone: [facility] 08-25-2024 16:11-0400 Body weight 97.5 kg Paz Ambriz APRN.DANCE ENTERTAINER Work Phone: [facility] 08-25-2024 16:11-0400 Diastolic blood pressure 85 mm[Hg] Paz Ambriz APRN.DANCE ENTERTAINER Work Phone: [facility] 08-25-2024 16:11-0400 Heart rate 83 /min Paz Ambriz ESTIMATING ENGINEER.DANCE ENTERTAINER Work Phone: [facility] 08-25-2024 16:11-0400 Respiratory rate 18 /min Paz Ambriz ESTIMATING ENGINEER.DANCE ENTERTAINER Work Phone: [facility] 08-25-2024 16:11-0400 SaO2% (BldA) [Mass fraction] 98 % Paz Ambriz ESTIMATING ENGINEER.DANCE ENTERTAINER Work Phone: [facility] 08-25-2024 16:11-0400 Systolic blood pressure 130 mm[Hg] Paz Ambriz APRN.DANCE ENTERTAINER Work Phone: [facility] 11-05-2023 09:02-0400 Body height 172.7 cm Ness Hayes MD Work Phone: [facility] 11-05-2023 09:02-0400 Body mass index (BMI) [Ratio] 32.08 kg/m2 Ness Hayes MD Work Phone: [facility] 11-05-2023 09:02-0400 Body weight 95.7 kg Ness Hayes MD Work Phone: [facility] 11-05-2023 09:02-0400 Diastolic blood pressure 78 mm[Hg] Ness Hayes MD Work Phone: [facility] 11-05-2023 09:02-0400 Heart rate 74 /min Ness Hayes MD Work Phone: [facility] 11-05-2023 09:02-0400 Respiratory rate 16 /min Ness Hayes MD Work Phone: [facility] 11-05-2023 09:02-0400 SaO2% (BldA) [Mass fraction] 100 % Ness Hayes MD Work Phone: [facility] 11-05-2023 09:02-0400 Systolic blood pressure 117 mm[Hg] Ness Hayes MD Work Phone: [facility] 10-31-2021 08:06-0400 Body temperature 97 [degF] Ness Hayes MD Work Phone: [facility] 10-31-2021 08:06-0400 Body weight 94.8 kg Ness Hayes MD Work Phone: [facility] 10-31-2021 08:06-0400 Diastolic blood pressure 76 mm[Hg] Ness Hayes MD Work Phone: [facility] 10-31-2021 08:06-0400 Heart rate 72 /min Ness Hayes MD Work Phone: [facility] 10-31-2021 08:06-0400 Respiratory rate 14 /min Ness Hayes MD Work Phone: [facility] 10-31-2021 08:06-0400 Systolic blood pressure 112 mm[Hg] Ness Hayes MD Work Phone: [facility] Encounters Encounter Date Encounter Type Care Provider Facility Start: 09-01-2024 End: 09-01-2024 Patient encounter procedure Paz Ambriz APRN.DANCE ENTERTAINER Work Phone: [facility] [place] Comment on above: Encounter for observ ation for other suspected diseases and conditions ruled out (Primary Dx) Start: 08-25-2024 End: 08-25-2024 Subsequent hospital visit by physician Alison [facility] Work Phone: Radiology Comment on above: Crushing injury of l eft lower leg, initial encounter [S87.82XA] Start: 08-25-2024 End: 08-25-2024 Patient encounter procedure Paz Ambriz APRN.DANCE ENTERTAINER Work Phone: [facility] Comment on above: Crushing injury of l eft lower leg, initial encounter (Primary Dx) Start: 08-25-2024 End: 08-25-2024 ambulatory NESS HAYES Facility:[facility] Start: 01-06-2024 End: 01-06-2024 ambulatory No Pcp ESTIMATING ENGINEER [facility] [place] Start: 01-06-2024 End: 01-06-2024 Patient encounter procedure No Pcp ESTIMATING ENGINEER [facility] [place] Start: 12-06-2023 End: 12-06-2023 ambulatory NESS Shannon [facility] Facility:[facility] Start: 12-06-2023 Encounter for genera l adult medical examination without abnormal findings PAZ AMBRIZ [facility] Start: 11-05-2023 End: 11-05-2023 ambulatory NESS Shannon [facility] Facility:[facility] Start: 11-05-2023 End: 11-05-2023 Patient encounter procedure Ness Hayes MD Work Phone: [facility] Comment on above: Wellness examination (Primary Dx); Screening for depression; Encounter for screening examination for other mental health and behavioral disorders; Fatigue, unspecified type; Environmental allergies; Screening PSA (prostate specific antigen); Hyperlipidemia, unspecified hyperlipidemia type Start: 11-05-2023 End: 11-05-2023 Patient encounter status Ness Hayes MD Work Phone: [facility] Start: 03-20-2023 End: 03-20-2023 Subsequent hospital visit by physician Xr [facility] Work Phone: Radiology Comment on above: Acute cough [R05.1] Start: 02-12-2022 End: 02-13-2022 ambulatory Erick Yusuf PT [facility] Comment on above: Acute pain of left k nee (Primary Dx) Start: 01-05-2022 End: 01-05-2022 ambulatory Erick Yusuf PT [facility] Comment on above: Acute pain of left k nee (Primary Dx) Start: 12-29-2021 End: 12-29-2021 ambulatory Erick Yusuf PT [facility] Comment on above: Acute pain of left k nee (Primary Dx) Start: 12-23-2021 End: 12-23-2021 ambulatory Erick Yusuf PT [facility] Comment on above: Acute pain of left k nee (Primary Dx) Start: 12-15-2021 End: 12-15-2021 ambulatory Erickmikki Yusuf PT [facility] Comment on above: Acute pain of left k nee (Primary Dx) Start: 12-01-2021 End: 12-01-2021 ambulatory Erick Yusuf PT [facility] Comment on above: Acute pain of left k nee (Primary Dx) Start: 11-07-2021 End: 11-07-2021 ambulatory Erickmikki Yusuf PT [facility] Comment on above: Acute pain of left k nee Start: 10-31-2021 End: 10-31-2021 Patient encounter procedure Ness Hayes MD Work Phone: [facility] Comment on above: Wellness examination (Primary Dx); Acute pain of left knee; Hyperlipidemia, unspecified hyperlipidemia type Start: 10-31-2021 End: 10-31-2021 Patient encounter status Ness Hayes MD Work Phone: [facility] [place] Start: 09-09-2021 ambulatory Ness stokes MD Work Phone: [facility] Comment on above: Scheduling Start: 10-28-2020 End: 10-28-2020 Subsequent hospital visit by physician Xr [facility] Work Phone: Radiology Comment on above: Fatigue, unspecified type [R53.83] Procedures Date Procedure Procedure Detail Performing Clinician Start: 08-25-2024 Radiologic examinati on tibia & fibula 2 views Paz Ambriz APRN.DANCE ENTERTAINER Work Phone: Start: 12-06-2023 Lipid 1996 panel - S pallavi or Plasma Xr [facility] Work Phone: Start: 11-05-2023 Adult depression scr eening assessment Ness Hayes MD Work Phone: Start: 03-20-2023 Radiologic exam ches t 2 views Olga Mejia APRN.DANCE ENTERTAINER Work Phone: Start: 11-07-2021 Lipid 1996 panel - S pallavi or Plasma Ness Hayes MD Work Phone: Start: 01-08-2021 Adult depression scr eening assessment Ness Hayes MD Work Phone: Start: 10-28-2020 Radiologic exam ches t 2 views Peggy Espinoza APRN.DANCE ENTERTAINER Work Phone: Start: 10-04-2020 Colonoscopy Ness overton MD Work Phone: Plan of Treatment Date Care Activity Detail Author Start: 10-04-2030 Colonoscopy COLONOSCOPY [facility] Start: 10-04-2030 COLORECTAL CANCER SCREENING COLORECTAL CANCER SCREENING [facility] Start: 10-04-2030 Screening for malign ant neoplasm of colon [facility] Start: 12-05-2028 Lipid panel Lipid Screening [facility] Start: 12-05-2028 Prostate specific antigen measurement Prostate Cancer Screening Discussion [facility] Start: 12-05-2026 Diabetes Screening Diabetes Screenin g [facility] Start: 11-07-2026 Lipid panel Lipid Screening [facility] Start: 11-07-2026 LIPID SCREEN LIPID SCREEN [facility] Start: 03-14-2026 LIPID SCREEN LIPID SCREEN [facility] Start: 11-23-2024 End: 11-23-2024 Patient encounter procedure 11/23/2024 8:00 AM EDT Office Visit [facility] [address] [place] [address] Ness Hayes MD [address] [place] [address] Annual check up [facility] Comment on above: Annual check up Start: 11-06-2024 Influenza vaccination Influenz a Vaccine (Season Ended) [facility] Start: 11-04-2024 Anxiety Screening Anxiety Screening [facility] Start: 11-04-2024 Depression Screening Depression Scre riya [facility] Start: 11-04-2024 Hepatitis C screening Hepatitis C Sc eren [facility] Comment on above: Postponed from 09/20 (Declined at this time) Start: 11-04-2024 HIV screening HIV Screening [facility] Comment on above: Postponed from 09/20 (Declined at this time) Start: 03-14-2024 DIABETES SCREEN [facility] Start: 03-14-2024 Diabetes Screening Diabetes Screenin g [facility] Start: 12-11-2023 PROSTATE CANCER SCREENING DISCUSSION PROSTATE CANCER SCREENING DISCUSSION [facility] Start: 12-11-2023 Prostate specific antigen measurement Prostate Cancer Screening Discussion [facility] Start: 11-07-2023 Covid-19 Vaccine () Covid-19 Vaccine () [facility] Start: 11-07-2023 Covid-19 Vaccine () Covid-19 Vaccine () [facility] Start: 11-07-2023 Influenza vaccination Influenza Vacc ine (#1) [facility] Start: 11-05-2023 End: 02-04-2024 CBC W Auto Differential panel - Blood COMPLETE BLOOD COUNT AND DIFFERENTIAL Lab Routine Fatigue, unspecified type Expected: 11/05/2023 (Approximate), Expires: 02/04/2024 [facility] Comment on above: Expected: 11/05/2023 (Approximate), Expires: 02/04/2024 Start: 11-05-2023 End: 02-04-2024 Comprehensive metabolic 2000 panel - Serum or Plasma COMPREHENSIVE METABOLIC PANEL Lab Routine Wellness examination Hyperlipidemia, unspecified hyperlipidemia type Expected: 11/05/2023 (Approximate), Expires: 02/04/2024 [facility] Comment on above: Expected: 11/05/2023 (Approximate), Expires: 02/04/2024 Start: 11-05-2023 End: 02-04-2024 Lipid 1996 panel - Serum or Plasma LIPID PANEL BASIC Lab Routine Wellness examination Hyperlipidemia, unspecified hyperlipidemia type Expected: 11/05/2023 (Approximate), Expires: 02/04/2024 [facility] Work Phone: Comment on above: Expected: 11/05/2023 (Approximate), Expires: 02/04/2024 Start: 11-05-2023 End: 02-04-2024 PSA/PROSTATE SPECIFIC ANTIGEN SCREENING PSA/PROSTATE SPECIFIC ANTIGEN SCREENING Lab Routine Screening PSA (prostate specific antigen) Expected: 11/05/2023 (Approximate), Expires: 02/04/2024 [facility] Comment on above: Expected: 11/05/2023 (Approximate), Expires: 02/04/2024 Start: 11-06-2022 Covid-19 Vaccine ( season) Covid-19 Vaccine ( season) [facility] Start: 01-08-2022 Adult depression screening assessment DEPRESSION SCREENING [facility] Start: 11-06-2021 Influenza vaccination INFLUENZA (#1) [facility] Start: 10-31-2021 End: 12-31-2021 Lipid 1996 panel - Serum or Plasma LIPID PANEL BASIC Lab Routine Wellness examination Hyperlipidemia, unspecified hyperlipidemia type Expected: 10/31/2021 (Approximate), Expires: 12/31/2021 [facility] Work Phone: Comment on above: Expected: 10/31/2021 (Approximate), Expires: 12/31/2021 Start: 03-08-2021 DEPRESSION ASSESSMENT DEPRESSION ASS ESSMENT [facility] Start: 12-11-2019 FECAL OCCULT BLOOD FECAL OCCULT BLOO D [facility] Start: 12-11-2019 Screening for malign ant neoplasm of colon Fecal Occult Blood [facility] Start: 09-21-2015 Pneumococcal Vaccine : 50+ (1 of 1 - PCV) Pneumococcal Vaccine: 50+ (1 of 1 - PCV) [facility] Start: 09-21-2015 SHINGRIX VACCINE (1 of 2) SHINGRIX VACCINE (1 of 2) [facility] Start: 2010 COLOGUARD (FIT-DNA) COLOGUARD (FIT-D NA) [facility] Start: [address] COLONOGRAPHY [facility] Start: 2010 Screening for malign ant neoplasm of colon [facility] Start: 2010 SIGMOIDOSCOPY SIGMOIDOSCOPY [facility] Start: 1984 Hepatitis B Vaccine (1 of 3 - 19+ 3-dose series) Hepatitis B Vaccine (1 of 3 - 19+ 3-dose series) [facility] Start: 1984 Urine microalbumin profile [facility] Start: 09-21-1983 HEPATITIS C SCREENING HEPATITIS C SC REENING [facility] Start: 09-21-1983 HIV SCREENING HIV SCREENING [facility] Start: 03-23-1966 COVID-19 VACCINE (#1) COVID-19 VACCI NE (#1) [facility] Start: 1965 HEPATITIS B (1 of 3 - 3-dose series) HEPATITIS B (1 of 3 - 3-dose series) [facility] PT PLAN OF CARE CERTIFICATION PT PLAN OF CARE CERTIFICATION Procedures Routine Acute pain of left knee Ordered: 11/07/2021 [facility] Work Phone: Comment on above: Ordered: 11/07/2021 PT PLAN OF CARE CERTIFICATION PT PLAN OF CARE CERTIFICATION Procedures Routine Acute pain of left knee Ordered: 02/13/2022 [facility] Work Phone: Comment on above: Ordered: 02/13/2022 [facility] Immunizations Immunization Date Immunization Notes Care Provider [facility] 02-18-2016 influenza, seasonal, injectable Ness Hayes MD Work Phone: [facility] 02-18-2016 influenza virus vaccine, unspecified formulation Ness Hayes MD Work Phone: [facility] Payers Date Payer Category Payer Unknown [id number] 2021 Private Health Insurance [id number] 2017 Unknown [employer] C[employer] PPO OOS [id number] 2017-2021 [facility] [id number] [place] [address] PPO [id number] Social History Date Type Detail Facility Tobacco smoking status NHIS Never smoked tobacco [facility] Start: 05-17-2021 End: 08-25-2024 Alcohol intake Current non-drinker of alcohol (finding) [facility] Start: 01-08-2021 History SDOH Alcohol Frequency 1 [facility] Start: 01-08-2021 History SDOH Social Connections Phone 5 [facility] Start: 01-08-2021 History SDOH Social Connections Get Together 4 [facility] Start: 01-08-2021 History SDOH Social Connections Jainism 3 [facility] Start: 01-08-2021 History SDOH Physica l Activity MPS 2 [facility] Start: 1965 Sex Assigned At Not on file [facility] Start: 09-28-2020 End: 10-31-2021 Exposure to SARS-CoV-2 (event) Not sure [facility] Start: 01-08-2021 End: 11-05-2023 History of Social function [facility] Start: 01-08-2021 End: 11-05-2023 Social connection and isolation panel [facility] Do you belong to any clubs or organizations such as judaism groups, unions, fraternal or athletic groups, or school groups? Yes [facility] Are you now , , , , never or living with a partner? [facility] How often to you hav e a drink containing alcohol? Never [facility] Average Number of Drinks Not on file [facility] Do you feel stress - tense, restless, nervous, or anxious, or unable to sleep at night because your mind is troubled all the time - these days [OSQ] To some extent [facility] (I/We) worried wheth er (my/our) food would run out before (I/we) got money to buy more. Never true [facility] In the past 12 month s, was there a time when you were not able to pay the mortgage or rent on time? No [facility] Clinical Notes 10-28-2020 to 09-01-2024 Paz Ambriz APRN.[facility] - 09/01/2024 8:53 AM Mee Sanchez RT(R) - 08/25/2024 4:30 PM Paz Glover APRN.[facility] - 08/25/2024 4:20 PM Sakshi Desai - 01/06/2024 10:42 AM EDT Note Date & Type Note Facility 09-01-2024 History of Presen t illness Narrative Chief Complaint Patient presents with: Follow Up HPI Chitra Gomez is a 58 year old male who presents here today for Above Complaints. Patient presents for follow up. Patient was seen in on 08/25 and was advised to proceed to ER which he did not do as they were set to leave for [place] that night. Patient presents for follow up as he has continued worsening pain to the left calvin.Reports improved swelling but pain has gotten worse especially with activity. Past medical history, appointments, medications, allergies reviewed. Previous Medical History No past medical history on file. Previous Surgical History PAST SURGICAL HISTORY Procedure Laterality Date COLONOSCOPY FLX DX W/COLLJ SPEC WHEN PFRMD 10/04/2020 PAST SURGICAL HISTORY OF Left 1996 Left ACL surgery PAST SURGICAL HISTORY OF 10/06/2018 widom teeth removed Family History FAMILY HISTORY Problem Relation Age of Onset Breast Cancer Mother Prostate Cancer Father before age 60 Patient Allergies ALLERGIES No Known Allergies Current Medications Current Outpatient Medications on File Prior to Visit Medication Sig albuterol HFA (PROVENTIL HFA, VENTOLIN HFA) 90 mcg/actuation inhaler Inhale 2 Puffs as instructed every 4 hours as needed for wheezing/shortness of breath. No current facility-administered medications on file prior to visit. Social History Social History Tobacco Use Smoking status: Never Smokeless tobacco: Never Substance Use Topics Alcohol use: No Drug use: No Review of Symptoms REVIEW OF SYSTEMS SEE HPI EXAM: BP 128/74 Pulse 69 Wt 96 kg (211 lb 10.3 oz) BMI 32.18 kg/m General Appearance: Well appearing, alert, in no acute distress, well-hydrated, well nourished. Extremities: Positive findings:Abrasions to left medial calvin well healing and without redness, warmth. Most of anterior calvin is swollen and shinypainful with palpation. Peripheral Pulses: Normal. Health Maintenance List DTaP,Tdap,Td Vaccine(1 - Tdap) Never done Hepatitis B Vaccine(1 of 3 - 19+ 3-dose series) Never done Shingrix Vaccine(1 of 2) Never done Pneumococcal Vaccine: 50+(1 of 1 - PCV) Never done Covid-19 Vaccine( - season) Never done Hepatitis C Screening due on 11/04/2024 HIV Screening due on 11/04/2024 Depression Screening due on 11/04/2024 Anxiety Screening due on 11/04/2024 Influenza Vaccine(Season Ended) due on 11/06/2024 Diabetes Screening due on 12/05/2026 Lipid Screening due on 12/05/2028 Prostate Cancer Screening Discussion due on 12/05/2028 Colorectal Cancer Screening due on 10/04/2030 Data reviewed DATE OF EXAM: Aug 25 2024 4:40PM WOX [id number] - XR TIBIA FIBULA 2V AP/LAT LT / PROCEDURE REASON: Crushing injury of left lower leg, initial encounter * * * * Physician Interpretation * * * * EXAM TITLE: XR TIBIA FIBULA 2V AP/LAT LT EXAM DATE/TIME: 08/25/2024 4:40 PM COMPARISON: None. CLINICAL INDICATION/HISTORY: Injury. TECHNIQUE: AP and lateral views of the left tibia and fibula are presented. FINDINGS: No acute fracture seen. Periosteal reaction visualized along the medial and posterior aspect of the proximal to mid tibia. Status post ACL reconstruction. The mineralization of the bones is normal. There is no significant soft tissue swelling. ASSESSMENT/PLAN: 1. Encounter for observation for other suspected diseases and conditions ruled out - ICD9: V71.89, ICD10: Z03.89 - CT TIB-FIB WO IVCON LEFT Paz Ambriz APRN.DANCE ENTERTAINER documented in this encounter [facility] 08-25-2024 History of Presen t illness Narrative Radiology Service Progress Note PATIENT NAME: Chitra Gomez DATE OF SERVICE: August 25, 2024 TIME: 4:31 PM PATIENT IDENTITY VERIFICATION COMPLETED USING TWO (2) IDENTIFIERS: Name and Date of confirmed by patient verbally. FALL SCREENING: Has the patient had 2 falls in the last year or 1 fall with injury or currently using an Ambulatory Assistive Device (Walker, Cane, Wheelchair, Crutches, etc.)? No PATIENT GENDER DATA: Assigned male at PATIENT RELEVANT IMPLANT DATA REVIEWED: Yes PATIENT PRESENTS WITH AN IMPLANTABLE OR ATTACHED LORRY WEIGHER: No RADIOLOGY DEPARTMENT: General X-ray: Exam(s) Completed: Lower Extremity X-Ray(s): Tibia Fibula, Left PERIPHERAL IV DATA: Not applicable SIGNED BY: RT Mairon(R) August 25, 2024 4:31 PM documented in this encounter [facility] 08-25-2024 Note HNO ID: [id number] Author: MEE SALGADO RT(R) Service: ? Author Type: Datapower Developer Type: Progress Notes Filed: 08/25/2024 16:39 Note Text: Radiology Service Progress Note PATIENT NAME: Chitra Gomez DATE OF SERVICE: August 25, 2024 TIME: 4:31 PM PATIENT IDENTITY VERIFICATION COMPLETED USING TWO (2) IDENTIFIERS: Name and Date of confirmed by patient verbally. FALL SCREENING: Has the patient had 2 falls in the last year or 1 fall with injury or currently using an Ambulatory Assistive Device (Walker, Cane, Wheelchair, Crutches, etc.)? No PATIENT GENDER DATA: Assigned male at PATIENT RELEVANT IMPLANT DATA REVIEWED: Yes PATIENT PRESENTS WITH AN IMPLANTABLE OR ATTACHED LORRY WEIGHER: No RADIOLOGY DEPARTMENT: General X-ray: Exam(s) Completed: Lower Extremity X-Ray(s): Tibia Fibula, Left PERIPHERAL IV DATA: Not applicable SIGNED BY: RT Marion(R) August 25, 2024 4:31 PM [facility] 08-25-2024 Note HNO ID: [id number] Author: PAZ AMBRIZ APRN.DANCE ENTERTAINER Service: ? Author Type: Nurse Practitioner Type: Progress Notes Filed: 08/25/2024 16:53 Note Text: [facility] Subjective Chitra Gomez is a 58 year old male. Patient presents with: Leg Injury: L lower leg injury x6 days, 6 sheets of plywood fell into calvin, swelling and bruising, blisters in middle weeping Patient presents for increased swelling, bruising and pain following a crush injury 6 days ago when plywood fell on his calvin The history is provided by the patient. No russian language instructor was used. Review of Systems Constitutional: Negative for activity change. Musculoskeletal: Positive for myalgias. Skin: Positive for wound. Objective BP 130/85 Pulse 83 Temp 37.1 ?C (98.7 ?F) Resp 18 Wt 97.5 kg (214 lb 15.2 oz) SpO2 98% BMI 32.68 kg/m? Physical Exam Constitutional: Appearance: Normal appearance. Musculoskeletal: General: Swelling, tenderness and signs of injury present. Left lower leg: Edema present. Skin: Findings: Bruising (Left lower leg from upper calf to ankle. pain with palpation of medial calf. leg significantly swollen when compared to right leg. Pulses palpable and strong.) present. Neurological: Mental Status: He is alert. {ASSESSMENT/PLAN: 1. Crushing injury of left lower leg, initial encounter - ICD9: 928.10, ICD10: S87.82XA - XR shows periosteal reaction, concern for osteomyelitis due to open abrasions at area of injury. Patient advised to poroceed to ER for advanced imaging. - XR TIBIA FIBULA 2V AP/LAT LEFT Paz Ambriz APRN.DANCE ENTERTAINER MDM Procedures [facility] 08-25-2024 History of Presen t illness Narrative [facility] Subjective Chitra Gomez is a 58 year old male. Patient presents with: Leg Injury: L lower leg injury x6 days, 6 sheets of plywood fell into calvin, swelling and bruising, blisters in middle weeping Patient presents for increased swelling, bruising and pain following a crush injury 6 days ago when plywood fell on his calvin The history is provided by the patient. No russian language instructor was used. Review of Systems Constitutional: Negative for activity change. Musculoskeletal: Positive for myalgias. Skin: Positive for wound. Objective BP 130/85 Pulse 83 Temp 37.1 C (98.7 F) Resp 18 Wt 97.5 kg (214 lb 15.2 oz) SpO2 98% BMI 32.68 kg/m Physical Exam Constitutional: Appearance: Normal appearance. Musculoskeletal: General: Swelling, tenderness and signs of injury present. Left lower leg: Edema present. Skin: Findings: Bruising (Left lower leg from upper calf to ankle. pain with palpation of medial calf. leg significantly swollen when compared to right leg. Pulses palpable and strong.) present. Neurological: Mental Status: He is alert. {ASSESSMENT/PLAN: 1. Crushing injury of left lower leg, initial encounter - ICD9: 928.10, ICD10: S87.82XA - XR shows periosteal reaction, concern for osteomyelitis due to open abrasions at area of injury. Patient advised to poroceed to ER for advanced imaging. - XR TIBIA FIBULA 2V AP/LAT LEFT Paz Ambriz APRN.DANCE ENTERTAINER MDM Procedures documented in this encounter [facility] 01-06-2024 Note HNO ID: [id number] Author: ?, ?, ? Service: ? Author Type: ? Type: Progress Notes Filed: 01/06/2024 10:43 Note Text: POPULATION HEALTH NAVIGATION OUTREACH Action/FYI LVM AND sent My Chart message. Reason for Outreach Care Gap/HCC or Scheduling Wellness Visits Care Gaps due: MAREN Patient Contacted: Unable or unnecessary to reach patient: Left message Navigation Signature: Sakshi Morales January 06, 2024 10:42 AM [facility] 01-06-2024 History of Presen t illness Narrative POPULATION HEALTH NAVIGATION OUTREACH Action/FYI LVM & sent My Chart message. Reason for Outreach Care Gap/HCC or Scheduling Wellness Visits Care Gaps due: MAREN Patient Contacted: Unable or unnecessary to reach patient: Left message Navigation Signature: Sakshi Morales January 06, 2024 10:42 AM documented in this encounter [facility] 01-06-2024 Note Patient Outreach (NE TNAV) CHITRA GOMEZ ([id number]) 1965 M Date Time Provider Department 01/06/24 NO PCP NETNAV During your visit today, we recorded the following information about you: Sakshi Morales 01/06/2024 10:43 AM Signed POPULATION HEALTH NAVIGATION OUTREACH Action/FYI LVM AND sent My Chart message. Reason for Outreach Care Gap/HCC or Scheduling Wellness Visits Care Gaps due: MAREN Patient Contacted: Unable or unnecessary to reach patient: Left message Navigation Signature: Sakshi oMrales January 06, 2024 10:42 AM Allergies As of Date: 01/06/2024 (No Known Allergies) Date Reviewed: 11/05/2023 Reviewed by: Kerri Ray MA - Fully Assessed Prescriptions as of 01/06/2024 - albuterol HFA (PROVENTIL HFA, VENTOLIN HFA) 90 mcg/actuation inhaler Inhale 2 Puffs as instructed every 4 hours as needed for wheezing/shortness of breath. Meds Comments as of 12/09/2015: None on a daily basis Problem List As Of Date 01/06/2024 Noted Resolved Acute pain of left knee [M25.562] 11/07/2021 Environmental allergies [Z91.09] 11/05/2023 Encounter Status:Closed by SAKSHI MORALES on 01/06/24 [facility] 11-05-2023 History of Presen t illness Narrative Chief Complaint Patient presents with: Physical HPI Chitra Gomez is a 58 year old male who presents here today for an Annual Wellness. Pt here today for routine Wellness visit. Daughter lives in [place]. She has a 1 year old. She works for [employer]. Denies any stomach, bowel or urinary issues. No ED issues. Denies any chest pain, sob or dizziness. Tries to watch his diet but could do better on discipline. Exercises some but admits that he isn't as active as he could be. He is a night runner and when he runs he uses treadmill which is easier on the back and knees. He admits to having less energy. He sleeps well at night. He does take 30 minute naps on weekend. He has been putting on more weight and not able to lose the weight as easily. Wondering about possible decreased testosterone. At last visit pt c/o left knee pain, which PT thought was due to his low back. Was treated with Mobic 15 mg once daily and did PT. He is no longer on Mobic. He admits to not doing the stretches for the knee regularly, typically when the knee starts to bother him. He has some lower back pain typically if he lifts hands over head, no pain with bending over or picking up things. Does not keep him from doing his activities. He will uses some Aleve if he has been working hard physically, takes as needed. The back issue caused nerve issue to the knee which causes the knee pain. Allergies: has seen eye doctor who told him he has eye allergies and is on drops. He uses OTC allergy meds and flonase during allergy season. That helped. He does feel like he has some SOB and chest heaviness in the mornings and uses an Albuterol inhaler 2 puffs in the mornings which seems to help through the day. Hx of pneumonia. Past medical history, appointments, medications, allergies reviewed. Previous Medical History No past medical history on file. Previous Surgical History PAST SURGICAL HISTORY 10/04/2020: COLONOSCOPY FLX DX W/COLLJ SPEC WHEN PFRMD 1996: PAST SURGICAL HISTORY OF; Left Comment: Left ACL surgery 10/06/2018: PAST SURGICAL HISTORY OF Comment: widom teeth removed Family History FAMILY HISTORY Problem Relation Age of Onset Breast Cancer Mother Prostate Cancer Father before age 60 Patient Allergies ALLERGIES No Known Allergies Current Medications Current Outpatient Medications on File Prior to Visit Medication Sig meloxicam (MOBIC) 15 mg tablet Take 1 tablet by mouth once daily. With food. promethazine (PHENERGAN) 25 mg tablet Take 1 tablet by mouth every 6 hours as needed. (Patient not taking: Reported on 05/17/2021 ) No current facility-administered medications on file prior to visit. Social History Social History Tobacco Use Smoking status: Never Smokeless tobacco: Never Substance Use Topics Alcohol use: No Drug use: No EXAM: BP 117/78 Pulse 74 Resp 16 Ht 172.7 cm (5' 8) Wt 95.7 kg (210 lb 15.7 oz) SpO2 100% BMI 32.08 kg/m General Appearance: Well appearing, alert, in no acute distress, well-hydrated, well nourished.. Neck: Supple, no adenopathy; thyroid symmetric, normal size. Lungs: Lungs clear to auscultation. No wheezing, rhonchi, rales.. Heart: RRR without murmur, gallop, or rubs. No ectopy. Abdomen: Normal abdominal exam, Abdomen soft, non-tender. Bowel sounds normal. No masses, organomegaly. Health Maintenance List Depression Screening Never done Anxiety Screening Never done DTaP,Tdap,Td Vaccine(1 - Tdap) Never done Hepatitis B Vaccine(1 of 3 - 19+ 3-dose series) Never done Shingrix Vaccine(1 of 2) Never done Covid-19 Vaccine( - 2022- season) Never done Hepatitis C Screening due on 11/04/2024 HIV Screening due on 11/04/2024 Influenza Vaccine(1) due on 11/07/2023 Prostate Cancer Screening Discussion due on 12/11/2023 Diabetes Screening due on 03/14/2024 Lipid Screening due on 11/07/2026 Colorectal Cancer Screening due on 10/04/2030 Data reviewed None ASSESSMENT/PLAN: ASSESSMENT/PLAN: 1. Wellness examination - ICD9: V70.0, ICD10: Z00.00 (primary diagnosis) - Counseled on healthy diet and regular exercise - Discussed need for and benefit of weight loss. BMI 32.08 kg/(m^2) - Follow up for annual exam in one year 2. Screening for depression - ICD9: V79.0, ICD10: Z13.31 - DEPRESSION SCREENING 3. Encounter for screening examination for other mental health and behavioral disorders - ICD9: V79.8, ICD10: Z13.39 - ANXIETY SCREENING 4. Fatigue, unspecified type - ICD9: 780.79, ICD10: R53.83 Check labs 5. Environmental allergies - ICD9: V15.09, ICD10: Z91.09 Continue with Flonase and allergy meds prn Can use Albuterol prn SOB 6. Screening PSA (prostate specific antigen) - ICD9: V76.44, ICD10: Z12.5 - Counseled on healthy diet and regular exercise - Discussed need for and benefit of weight loss. BMI 32.08 kg/(m^2) - Risks/benefits of prostate cancer screening discussed. screening PSA ordered Follow up in 1 year or sooner if needed. Will notify of lab results. I agree with the Chief Complaint, ROS, and Past Histories independently gathered by the clinical retail support manager and the remaining scribed note accurately describes my personal service to the patient. Ness Hayes MD The documentation for this note was completed by Kerri Ray MA acting as scribe for Ness Hayes MD. November 05, 2023 9:09 AM. Kerri Ray MA documented in this encounter [facility] 11-05-2023 Note HNO ID: [id number] Author: NESS HAYES MD Service: ? Author Type: Physician Type: Progress Notes Filed: 11/05/2023 10:42 Note Text: Chief Complaint Patient presents with: Physical HPI Chitra Gomez is a 58 year old male who presents here today for an Annual Wellness. Pt here today for routine Wellness visit. Daughter lives in [place]. She has a 1 year old. She works for [employer]. Denies any stomach, bowel or urinary issues. No ED issues. Denies any chest pain, sob or dizziness. Tries to watch his diet but could do better on discipline. Exercises some but admits that he isn't as active as he could be. He is a night runner and when he runs he uses treadmill which is easier on the back and knees. He admits to having less energy. He sleeps well at night. He does take 30 minute naps on weekend. He has been putting on more weight and not able to lose the weight as easily. Wondering about possible decreased testosterone. At last visit pt c/o left knee pain, which PT thought was due to his low back. Was treated with Mobic 15 mg once daily and did PT. He is no longer on Mobic. He admits to not doing the stretches for the knee regularly, typically when the knee starts to bother him. He has some lower back pain typically if he lifts hands over head, no pain with bending over or picking up things. Does not keep him from doing his activities. He will uses some Aleve if he has been working hard physically, takes as needed. The back issue caused nerve issue to the knee which causes the knee pain. Allergies: has seen eye doctor who told him he has eye allergies and is on drops. He uses OTC allergy meds and flonase during allergy season. That helped. He does feel like he has some SOB and chest heaviness in the mornings and uses an Albuterol inhaler 2 puffs in the mornings which seems to help through the day. Hx of pneumonia. Past medical history, appointments, medications, allergies reviewed. Previous Medical History No past medical history on file. Previous Surgical History PAST SURGICAL HISTORY 10/04/2020: COLONOSCOPY FLX DX W/COLLJ SPEC WHEN PFRMD 1996: PAST SURGICAL HISTORY OF; Left Comment: Left ACL surgery 10/06/2018: PAST SURGICAL HISTORY OF Comment: widom teeth removed Family History FAMILY HISTORY Problem Relation Age of Onset Breast Cancer Mother Prostate Cancer Father before age 60 Patient Allergies ALLERGIES No Known Allergies Current Medications Current Outpatient Medications on File Prior to Visit Medication Sig meloxicam (MOBIC) 15 mg tablet Take 1 tablet by mouth once daily. With food. promethazine (PHENERGAN) 25 mg tablet Take 1 tablet by mouth every 6 hours as needed. (Patient not taking: Reported on 05/17/2021 ) No current facility-administered medications on file prior to visit. Social History Social History Tobacco Use Smoking status: Never Smokeless tobacco: Never Substance Use Topics Alcohol use: No Drug use: No EXAM: BP 117/78 Pulse 74 Resp 16 Ht 172.7 cm (5' 8) Wt 95.7 kg (210 lb 15.7 oz) SpO2 100% BMI 32.08 kg/m? General Appearance: Well appearing, alert, in no acute distress, well-hydrated, well nourished.. Neck: Supple, no adenopathy; thyroid symmetric, normal size. Lungs: Lungs clear to auscultation. No wheezing, rhonchi, rales.. Heart: RRR without murmur, gallop, or rubs. No ectopy. Abdomen: Normal abdominal exam, Abdomen soft, non-tender. Bowel sounds normal. No masses, organomegaly. Health Maintenance List Depression Screening Never done Anxiety Screening Never done DTaP,Tdap,Td Vaccine(1 - Tdap) Never done Hepatitis B Vaccine(1 of 3 - 19+ 3-dose series) Never done Shingrix Vaccine(1 of 2) Never done Covid-19 Vaccine(1 - 2022- season) Never done Hepatitis C Screening due on 11/04/2024 HIV Screening due on 11/04/2024 Influenza Vaccine(1) due on 11/07/2023 Prostate Cancer Screening Discussion due on 12/11/2023 Diabetes Screening due on 03/14/2024 Lipid Screening due on 11/07/2026 Colorectal Cancer Screening due on 10/04/2030 Data reviewed None ASSESSMENT/PLAN: ASSESSMENT/PLAN: 1. Wellness examination - ICD9: V70.0, ICD10: Z00.00 (primary diagnosis) - Counseled on healthy diet and regular exercise - Discussed need for and benefit of weight loss. BMI 32.08 kg/(m2) - Follow up for annual exam in one year 2. Screening for depression - ICD9: V79.0, ICD10: Z13.31 - DEPRESSION SCREENING 3. Encounter for screening examination for other mental health and behavioral disorders - ICD9: V79.8, ICD10: Z13.39 - ANXIETY SCREENING 4. Fatigue, unspecified type - ICD9: 780.79, ICD10: R53.83 Check labs 5. Environmental allergies - ICD9: V15.09, ICD10: Z91.09 Continue with Flonase and allergy meds prn Can use Albuterol prn SOB 6. Screening PSA (prostate specific antigen) - ICD9: V76.44, ICD10: Z12.5 - Counseled on healthy diet and regular exercise - Discussed (more content not included)... [facility] 03-20-2023 History of Presen t illness Narrative Radiology Service Progress Note PATIENT NAME: Chitra Gomez DATE OF SERVICE: March 20, 2023 TIME: 11:29 AM PATIENT IDENTITY VERIFICATION COMPLETED USING TWO (2) IDENTIFIERS: Name and Date of confirmed by patient verbally. FALL SCREENING: Has the patient had 2 falls in the last year or 1 fall with injury or currently using an Ambulatory Assistive Device (Walker, Cane, Wheelchair, Crutches, etc.)? No PATIENT GENDER DATA: Male PATIENT RELEVANT IMPLANT DATA REVIEWED: Yes RADIOLOGY DEPARTMENT: General X-ray: Exam(s) Completed: Chest X-Ray PERIPHERAL IV DATA: Not applicable SIGNED BY: RT Marion(R) March 20, 2023 11:29 AM documented in this encounter [facility] 02-12-2022 History of Presen t illness Narrative Episode Visit Count: 9 Therapist That Will Accept/Oversee The Plan Of Care: Erick Yusuf Start of Care Date: 11/07/21 Onset Date: 07/06/21 Plan of Care Certification Date: 01/05/22 Next Certification Due Date: 02/13/22 Patient Identified by Name and Date of : Yes REHABILITATION AND SPORTS THERAPY PHYSICAL THERAPY PROGRESS REPORT PLAN OF CARE UPDATE: Assessment: Chitra Gomez demonstrates difficulty with recreational activities and running and improvements in decreased pain with walking, standing, and jogging. He hasprogressed toward goals. Patient continues to present with impairments in strength and symptom management that interfere with running;stair negotiation . Current prognosis is Good due to: current objective clinical presentation;good overall health status . He will benefit from continued skilled therapy services to meet the updated goals for this plan of care as noted below. Goals updated 02/12/2022 Goals for Episode of Care: created on 11/07/21 through 01/02/22 Pt will be able to run without symptoms in 8 weeks - Ptogressing, will continue Pt will demonstrate HS flexibility of minimal limitation or better in 8 weeks or less for improved joint mechanics at the knee - Progressing, will continue Pt will report overall improvement in LLE symptoms by 80% or greater in 8 weeks or less - Met so far [place] in home exercise program. - Met so far Patient Goals: Pt wants to decrease pain Patient Goals: Pt wants to decrease pain Planned Interventions, Frequency, and Duration: 1x/month, One month Total Number of Visits Planned: 1 Patient to be seen for Therapeutic exercise (42051);Neuromuscular re-education (57098);Therapeutic activities (54751);Manual therapy (41342);Self-shelter management (90789) PLAN FOR NEXT VISIT: Re-check on symptoms and advance exercises as needed. assess running regimen. SUBJECTIVE: Patient Reason for Visit: Pt states he gets up and stretches 20-30 min every day. Pt states that sometimes he has pain in the bottom right of the lower back when doing things that are strenuous. No knee pain today. Pt has been up and down on ladders this past week and had pain in the knee from that. Patient Goals: Pt wants to decrease pain Functional Limitations: running;stair negotiation Prior Level of Function: Independent without limitations Intake Information: Prescription present Spine History Symptoms Location at Onset: Back Symptoms Since Onset: Unchanging Pain: Pain Pain Level: 0 Pain Location: Back Additional Pain Information : Location 2 (0/10) Pain Location 2: Knee - Left PROMIS Scales Higher is Better 10/28/2021 11/06/2021 12/15/2021 Phys Func - Score - 55 (within normal limits) 50 (within normal limits) Phys Func - Percentile - 69 % 50 % GH Physical - Score 47.7 (Good) - 39.8 (Fair) GH Physical - Percentile 41 % - 15 % GH Mental - Score 48.3 (Very Good) - 50.8 (Very Good) GH Mental - Percentile 43 % - 53 % Self-Eff Symptom - Score - 46 (Average) 46 (Average) Self-Eff Symptom - Percentile - 34 % 34 % T-scores: mean of general population = 50. 5 points is clinically meaningfully difference Percentiles provide an indication of how the patient's score ranks in relation to the general population. Higher percentile rankings indicate better function/quality of life. 50th percentile is the average of the general population and indicates half of respondents had a worse score. T-scores: mean of general population = 50. 5 points is clinically meaningfully difference Percentiles provide an indication of how the patient's score ranks in relation to the general population. Higher percentile rankings indicate better function/quality of life. 50th percentile is the average of the general population and indicates half of respondents had a worse score. OBJECTIVE MEASURES WITH LEVEL OF FUNCTION: Lumbar Spine AROM Lumbar Flexion: Normal Lumbar Extension: Normal Lumbar R Side-Bend: Normal Lumbar L Side-Bend: Normal Lumbar R Rotation: Normal Lumbar L Rotation: Normal LE Joint Mobility R Patellar Mobility: WNL L Patellar Mobility: WNL LE Strength R Hip Extension: 4/5 R Knee Extension (L3): 5/5 L Hip Extension: 4/5 L Knee Extension (L3): 5/5 Gait Gait Observation: WNL TREATMENT: Therapeutic Exercise: 1: All objective measures taken this session 2: Wall slides 2 x 10 3: Briefly discussed running regimen and HEP Skilled Intervention: Patient was educated in proper exercise technique and purpose for exercises. Provided written instruction for home exercise program to facilitate proper performance and compliance. Correct performance of therapeutic exercises was facilitated with verbal and visual cuing. Billing Therapeutic Exercise Treatment Minutes: 32 Total Treatment Time Minutes (timed/untimed): 32 Erick Yusuf PT documented in this encounter [facility] 01-05-2022 History of Presen t illness Narrative Episode Visit Count: 8 Therapist That Will Accept/Oversee The Plan Of Care: Erick Yusuf Start of Care Date: 11/07/21 Onset Date: 07/06/21 Plan of Care Certification Date: 12/08/21 Next Certification Due Date: 01/12/22 Patient Identified by Name and Date of : Yes REHABILITATION AND SPORTS THERAPY PHYSICAL THERAPY PROGRESS REPORT PLAN OF CARE UPDATE: Assessment: Chitra Gomez demonstrates difficulty with yard work for prolonged periods of time and pain with squatting and improvements in pain levels, independence with the HEP, and improved tolerance to ADL's. He hasprogressed toward goals. Patient continues to present with impairments in quad endurance on the L, pain, and decreased tolerance to strenuous activity for longer periods of time that interfere with running;stair negotiation . Current prognosis is Good due to: current objective clinical presentation;good overall health status . He will benefit from continued skilled therapy services to meet the updated goals for this plan of care as noted below. Goals updated 01/05/2022 Goals for Episode of Care: created on 11/07/21 through 01/02/22 Pt will be able to run without symptoms in 8 weeks - Not met, will continue Pt will demonstrate HS flexibility of minimal limitation or better in 8 weeks or less for improved joint mechanics at the knee - Progressing, will continue Pt will report overall improvement in LLE symptoms by 80% or greater in 8 weeks or less - Met so far [place] in home exercise program. - Met so far Patient Goals: Pt wants to decrease pain Patient Goals: Pt wants to decrease pain Planned Interventions, Frequency, and Duration: , Patient to be seen for SUBJECTIVE: Patient Reason for Visit: Pt has not done as much outside. Less pain now. Did some stretching for 40 min this morning already. Pt feels 85% improved but has not tested his running yet. Patient Goals: Pt wants to decrease pain Functional Limitations: running;stair negotiation Prior Level of Function: Independent without limitations Intake Information: Prescription present Spine History Symptoms Location at Onset: Back Symptoms Since Onset: Improving Pain: Pain Pain Level: 0 Pain Location: Back Post Treatment Pain Post Treatment Pain Location: Back PROMIS Scales Higher is Better 10/28/2021 11/06/2021 12/15/2021 Phys Func - Score - 55 (within normal limits) 50 (within normal limits) Phys Func - Percentile - 69 % 50 % GH Physical - Score 47.7 (Good) - 39.8 (Fair) GH Physical - Percentile 41 % - 15 % GH Mental - Score 48.3 (Very Good) - 50.8 (Very Good) GH Mental - Percentile 43 % - 53 % Self-Eff Symptom - Score - 46 (Average) 46 (Average) Self-Eff Symptom - Percentile - 34 % 34 % T-scores: mean of general population = 50. 5 points is clinically meaningfully difference Percentiles provide an indication of how the patient's score ranks in relation to the general population. Higher percentile rankings indicate better function/quality of life. 50th percentile is the average of the general population and indicates half of respondents had a worse score. T-scores: mean of general population = 50. 5 points is clinically meaningfully difference Percentiles provide an indication of how the patient's score ranks in relation to the general population. Higher percentile rankings indicate better function/quality of life. 50th percentile is the average of the general population and indicates half of respondents had a worse score. OBJECTIVE MEASURES WITH LEVEL OF FUNCTION: Lumbar Spine AROM Lumbar Flexion: Normal Lumbar Extension: Normal Lumbar R Side-Bend: Normal Lumbar L Side-Bend: Normal Lumbar R Rotation: Normal Lumbar L Rotation: Normal LE AROM L LE AROM: Pt reports this legs feels stiffer and harder to move at the knee. LE Joint Mobility R Patellar Mobility: WNL L Patellar Mobility: WNL LE Strength R LE Strength: Grossly 5/5 L LE Strength: Grossly 5/5. Decreased L quad control and quicker to fatigue than the R with heel tap exercise R Hip Extension: 4/5 L Hip Extension: 4/5 TREATMENT: Therapeutic Exercise: 1: All objective measures taken this session 2: Paloff BTB 2 x 10 (one set each side) 3: 4 heel taps 3 x 10 Skilled Intervention: Patient was educated in proper exercise technique and purpose for exercises. Provided written instruction for home exercise program to facilitate proper performance and compliance. Correct performance of therapeutic exercises was facilitated with verbal and visual cuing. Billing Therapeutic Exercise Treatment Minutes: 45 Total Treatment Time Minutes (timed/untimed): 45 Erick Yusuf PT documented in this encounter [facility] 12-29-2021 History of Presen t illness Narrative Episode Visit Count: 7 Therapist That Will Accept/Oversee The Plan Of Care: Erick Yusuf Start of Care Date: 11/07/21 Onset Date: 07/06/21 Plan of Care Certification Date: 12/08/21 Next Certification Due Date: 01/12/22 Patient Identified by Name and Date of : Yes REHABILITATION AND SPORTS THERAPY PHYSICAL THERAPY TREATMENT NOTE ASSESSMENT: Chitra Gomez tolerated the session with no change in symptoms. He demonstrated improved core control with use of biofeedback during hip ext exercise. The patient will continue to benefit from ongoing skilled physical therapy to progress toward set goals. PLAN FOR NEXT VISIT: POC update SUBJECTIVE: Patient Reason for Visit: Painful in the lower back after working all day. The stretches do help the symptoms but not sure he is progressing. Pain: Pain Pain Level: 4 Pain Location: Back Post Treatment Pain Post Treatment Pain Level: Better Post Treatment Pain Location: Back OBJECTIVE MEASURES WITH LEVEL OF FUNCTION: Lumbar Spine AROM Lumbar Flexion: Normal Lumbar Extension: Normal Lumbar R Side-Bend: Normal Lumbar L Side-Bend: Normal Lumbar R Rotation: Normal Lumbar L Rotation: Normal LE AROM L Knee Extension: 3 Degrees L Knee Flexion: 130 Degrees Negative anterior and posterior drawer at the L knee Familiar back pain on the R with some soreness with UPA at L4/L5 facet joint and palpation of the R lower lumbar paraspinals TREATMENT: Therapeutic Exercise: 1: IVA x 5 min 2: Supine quad set towel roll under heel x 10 3: Quadruped hip ext 2 x 10 reps Skilled Intervention: Patient was educated in proper exercise technique and purpose for exercises. Correct performance of therapeutic exercises was facilitated with verbal and visual cuing. Manual Therapy: 1: Self massage ball vs wall discussed. Duration and intensity discussed Skilled Intervention: Manual skills to improve joint mobility, ROM, and decrease pain. Utilized anatomy knowledge of the therapist, and assessment of patient's response to intervention. Billing Therapeutic Exercise Treatment Minutes: 28 Manual TherapyTreatment Minutes: 10 Total Treatment Time Minutes (timed/untimed): 38 Erick Yusuf PT documented in this encounter [facility] 12-23-2021 History of Presen t illness Narrative Episode Visit Count: 6 Therapist That Will Accept/Oversee The Plan Of Care: Erick Yusuf Start of Care Date: 11/07/21 Onset Date: 07/06/21 Plan of Care Certification Date: 12/08/21 Next Certification Due Date: 01/12/22 Patient Identified by Name and Date of : Yes REHABILITATION AND SPORTS THERAPY PHYSICAL THERAPY TREATMENT NOTE ASSESSMENT: Chitra Goemz tolerated the session with no issues. He demonstrated improvements in overall pain levels in the back and leg post lumbar ext program. Pt does demonstrate the needs for some core stability training as well. The patient will continue to benefit from ongoing skilled physical therapy to progress toward set goals. PLAN FOR NEXT VISIT: Continue with lumbar ext program SUBJECTIVE: Patient Reason for Visit: Weekends are full of activity. Worn out over the weekend and the back was sore. The exercises seems to be working well. Pain: Pain Pain Level: 2 Pain Location: Back Post Treatment Pain Post Treatment Pain Level: Better Post Treatment Pain Location: Back OBJECTIVE MEASURES WITH LEVEL OF FUNCTION: TREATMENT: Therapeutic Exercise: 1: IVA x 4 min 2: Prone hip ext 2 x 10 (No longer increases pain into the L leg) 3: PPU 3 x 5 reps 4: Walking treadmill 3.5 x 3 min (Oberving form and pain tolerance) 5: Discussed modification to the HEP and how to properly perform the PPU to avoid increased pain into the LLE Skilled Intervention: Patient was educated in proper exercise technique and purpose for exercises. Correct performance of therapeutic exercises was facilitated with verbal and visual cuing. Billing Therapeutic Exercise Treatment Minutes: 42 Total Treatment Time Minutes (timed/untimed): 42 Erick Yusuf PT documented in this encounter [facility] 12-15-2021 History of Presen t illness Narrative Episode Visit Count: 5 Therapist That Will Accept/Oversee The Plan Of Care: Erick Yusuf Start of Care Date: 11/07/21 Onset Date: 07/06/21 Plan of Care Certification Date: 12/08/21 Next Certification Due Date: 01/12/22 Patient Identified by Name and Date of : Yes REHABILITATION AND SPORTS THERAPY PHYSICAL THERAPY TREATMENT NOTE ASSESSMENT: Chitra Gomez tolerated the session with decreased symptoms. He demonstrated difficulty with pin pointing a direction of preference. The patient will continue to benefit from ongoing skilled physical therapy to progress toward set goals. Pt will trial a lumbar ext program (un-weighted) to determine if this improves pt's symptoms. PLAN FOR NEXT VISIT: Assess reaction to extensions SUBJECTIVE: Patient Reason for Visit: Pt has felt increased back pain this week. Maybe has not been doing enough of the exercises. Was sitting on a stool which hurt and would have been better standing. Pain: Pain Pain Level: 7 Pain Location: Back Post Treatment Pain Post Treatment Pain Level: Better Post Treatment Pain Location: Back OBJECTIVE MEASURES WITH LEVEL OF FUNCTION: Lumbar Spine AROM Lumbar Flexion: Normal;Increased pain TREATMENT: Therapeutic Exercise: 1: IVA 4 x 5 min 2: Prone hip ext 2 x 10 (Lifting the RLE increases L back and knee pain) 3: Discussed modifications to the HEP to insure reduction of back pain Skilled Intervention: Patient was educated in proper exercise technique and purpose for exercises. Skilled judgment was provided in selection of appropriate interventions. Manual Therapy: 1: Supine lumbar traction with belt x 10 min Skilled Intervention: Manual skills to improve joint mobility, ROM, and decrease pain. Utilized anatomy knowledge of the therapist, and assessment of patient's response to intervention. Billing Therapeutic Exercise Treatment Minutes: 29 Manual TherapyTreatment Minutes: 10 Total Treatment Time Minutes (timed/untimed): 39 Erick Yusuf PT documented in this encounter [facility] 12-01-2021 History of Presen t illness Narrative Episode Visit Count: 3 Therapist That Will Accept/Oversee The Plan Of Care: Erick Yusuf Start of Care Date: 11/07/21 Onset Date: 07/06/21 Plan of Care Certification Date: 11/07/21 Next Certification Due Date: 12/12/21 Patient Identified by Name and Date of : Yes REHABILITATION AND SPORTS THERAPY PHYSICAL THERAPY TREATMENT NOTE ASSESSMENT: Chitra Gomez tolerated the session with decreased symptoms. He demonstrated improvements in pain levels with lumbar flexion-based exercises. Ample time taken to help pt perform exercises correctly as pt wants to perform an anterior PT instead of a posterior PT. The patient will continue to benefit from ongoing skilled physical therapy to progress toward set goals and for reassessment by supervising therapist. PLAN FOR NEXT VISIT: Lumbar traction as needed. Child's pose, Cat pose, and trial PPT on wall. SUBJECTIVE: Patient Reason for Visit: By the end of the evening yesterday he was sore. Pain: Pain Pain Level: (Not rated) Pain Location: Leg - Left Post Treatment Pain Post Treatment Pain Level: Better Post Treatment Pain Location: Leg - Left OBJECTIVE MEASURES WITH LEVEL OF FUNCTION: Standing lumbar flexion centralizes pain Pt demo's poor motor control of the lumbar spine and pelvis when asked to perform a PPT Pt requires verbal and tactile cues to correctly perform a PPT as the pt tends to perform an APT Lumbar traction reduces LLE pain after completion TREATMENT: Therapeutic Exercise: 1: PPT on wall 2 x 10 (Discussed how to perform properly as pt has difficulty performing this motion) 2: Cat pose 2 x 10 reps (Requires multiple VC's and tactile cues to perform correctly) 3: Standing lumbar flexion x 10 reps Skilled Intervention: Patient was educated in proper exercise technique and purpose for exercises. Skilled judgment was provided in selection of appropriate interventions. Provided written instruction for home exercise program to facilitate proper performance and compliance. Manual Therapy: 1: Lumbar traction with stool and strap x 10 min Skilled Intervention: Manual skills to improve joint mobility, ROM, and decrease pain. Utilized anatomy knowledge of the therapist, and assessment of patient's response to intervention. Billing Therapeutic Exercise Treatment Minutes: 31 Manual TherapyTreatment Minutes: 10 Total Treatment Time Minutes (timed/untimed): 41 Erick Yusuf PT documented in this encounter [facility] 11-07-2021 History of Presen t illness Narrative Episode Visit Count: 1 Therapist That Will Oversee The Plan Of Care: Erick Yusuf Start of Care Date: 11/07/21 Onset Date: 07/06/21 Plan of Care Certification Date: 11/07/21 Next Certification Due Date: 12/12/21 Patient Identified by Name and Date of : Yes [facility]TS [facility]ERAPY PHYSICAL THERAPY EVALUATION PLAN OF CARE: Assessment: Chitra Gomez presents with chief complaint of L knee pain that interferes with running;stair negotiation . He presents with impairments in ADL's, gait, independence in exercise, range of motion, and strength . Prognosis for therapy is Good due to: current objective clinical presentation;good overall health status . PA pressure brings on some familiar pain into the L HS region. Laying prone seems to increase the L foot pain. He will benefit from skilled therapy services to meet the goals established for this plan of care as noted below. Goals for Episode of Care: created on 11/07/21 through 01/02/22 Pt will be able to run without symptoms in 8 weeks Pt will demonstrate HS flexibility of minimal limitation or better in 8 weeks or less for improved joint mechanics at the knee Pt will report overall improvement in LLE symptoms by 80% or greater in 8 weeks or less [place] in home exercise program. Patient Goals: Pt wants to decrease pain Planned Interventions, Frequency, and Duration: Current Frequency: 1x/week Duration: 4 weeks Total Number of Visits Planned: 4 Planned Treatment Interventions: Therapeutic exercise (39638);Neuromuscular re-education (37798);Therapeutic activities (59986);Manual therapy (23896);Self-shelter management (63487) PLAN FOR NEXT VISIT: Assess HS strength in seated position bilat. Assess reaction to back exercise. Patient demonstrates good understanding of plan of care and treatment. The above goals and plan of care were discussed and agreed upon by patient/family. SUBJECTIVE: Chitra Gomez is a 56 year old male seen today for Knee pain. Ran in 5k and next day he felt he pulled his HS. [place] tendon in bottom of foot. Hx of ACL surgery of the L knee. No back pain. Wears a sleeve and the compression seemed to help. Patient Goals: Pt wants to decrease pain Functional Limitations: running;stair negotiation Prior Level of Function: Independent without limitations Relevant History Preferred Language: Yakut Intake Information: Prescription present Previous Treatment: (meloxicam) Pain: Pain Pain Level: 3 Pain Location: Knee - Left;Leg - Left Description: Aching Post Treatment Pain Post Treatment Pain Level: Better PROMIS Scales Higher is Better 01/08/2021 10/28/2021 11/06/2021 Phys Func - Score - - 55 (within normal limits) Phys Func - Percentile - - 69 % GH Physical - Score 54.1 (Very Good) 47.7 (Good) - GH Physical - Percentile 66 % 41 % - GH Mental - Score 56 (Excellent) 48.3 (Very Good) - GH Mental - Percentile 73 % 43 % - Self-Eff Symptom - Score - - 46 (Average) Self-Eff Symptom - Percentile - - 34 % T-scores: mean of general population = 50. 5 points is clinically meaningfully difference Percentiles provide an indication of how the patient's score ranks in relation to the general population. Higher percentile rankings indicate better function/quality of life. 50th percentile is the average of the general population and indicates half of respondents had a worse score. T-scores: mean of general population = 50. 5 points is clinically meaningfully difference Percentiles provide an indication of how the patient's score ranks in relation to the general population. Higher percentile rankings indicate better function/quality of life. 50th percentile is the average of the general population and indicates half of respondents had a worse score. OBJECTIVE MEASURES WITH LEVEL OF FUNCTION: Knee Observations L Knee Palpation Tenderness: Medial joint line LE AROM L Knee Extension: 5 Degrees LE Flexibility Flexibility: Hamstring Flexibility R Hamstring Flexibility: Mod tightness L Hamstring Flexibility: Mod tightness LE Joint Mobility R Patellar Mobility: WNL L Patellar Mobility: WNL LE Strength R LE Strength: Grossly 5/5 L LE Strength: Grossly 5/5 R Hip ABduction: 3+/5 L Hip ABduction: 3+/5 PA pressure to L4 brings on pain into the L HS Education: Education Learning Preferences: Demonstration;Explanation;Printe d Materials;Performance Barriers: None Learning/educational needs: Home exercise program;Plan of Care Education Provided: Yes, see treatment interventions for education provided Education Provided To: Patient Education Mode/Type: Demonstration;Explanation/Discus ian;Literature/Printed Materials;Performance Response to Education/Teach Back: States/Identifies;Return Demonstration TREATMENT: PT Treatment Interventions: Therapeutic Exercise Evaluation Therapeutic Exercise: 1: Discussed therapy goals and exam findings. Purpose of HEP discussed and possibility of pain coming from 2 sources... the nerves from the back and pain from the knee that is mechanical. 2: SKTC x 6 each side holding 5-10 sec each Skilled Intervention: Patient was educated in proper exercise technique and purpose for exercises. Provided written instruction for home exercise program to facilitate proper performance and compliance. Correct performance of therapeutic exercises was facilitated with verbal and visual cuing. Billing * Evaluation Moderate Complexity: 1 Unit Therapeutic Exercise Treatment Minutes: 15 Total Treatment Time Minutes (timed/untimed): 45 Erick Yusuf PT documented in this encounter [facility] 10-31-2021 History of Presen t illness Narrative Chief Complaint Patient presents with: Physical HPI Chitra Gomez is a 56 year old male who presents here today for physical. Still working in the food business, works in sales. He travels all over the [place]. No bowel, Gi, or urinary issues. No chest pains, dizziness, or SOB. Tries to watch diet. Does try to run for exercise. Admits to putting on some weight due to not being able to run as much due to his knee pain. He does row for exercise as well. Pain: Has had to give up running this year due to a nagging injury he has. He pulled hamstring running a 5k, admits he did not warm up well before running and then 2 days later he noticed pain in the left inner knee. Hx of torn ACL in Right knee. Denies any swelling to the knee. He states he can not run more than 2 miles before being extremely uncomfortable. He denies falling or twisting the knee to injure it. He states the worse time is at night, it is very painful especially trying to lay leg down flat. He has been using compression stocking and sleeve on the knee which helps. He has started using 1 Ibuprofen a day for the past few weeks and that has seemed to help. He has not been stretching as much either to help with the hamstring discomfort. He states running was his stress relief and he has put on weight since he hasn't been able to run. He has been rowing since it is not as painful for the knee. Denies any locking or popping of the knee. Past medical history, appointments, medications, allergies reviewed. Previous Medical History No past medical history on file. Previous Surgical History PAST SURGICAL HISTORY Procedure Laterality Date COLONOSCOPY FLX DX W/COLLJ SPEC WHEN PFRMD 10/04/2020 PAST SURGICAL HISTORY OF Left 1995 Left ACL surgery PAST SURGICAL HISTORY OF 10/06/2018 widom teeth removed Family History FAMILY HISTORY Problem Relation Age of Onset Breast Cancer Mother Prostate Cancer Father before age 60 Patient Allergies ALLERGIES No Known Allergies Current Medications Current Outpatient Medications on File Prior to Visit Medication Sig promethazine (PHENERGAN) 25 mg tablet Take 1 tablet by mouth every 6 hours as needed. (Patient not taking: Reported on 05/17/2021 ) No current facility-administered medications on file prior to visit. Social History Social History Tobacco Use Smoking status: Never Smokeless tobacco: Never Substance Use Topics Alcohol use: No Drug use: No EXAM: BP 112/76 Pulse 72 Temp 36.1 C (97 F) (Left Tympanic) Resp 14 Wt 94.8 kg (209 lb) BMI 31.78 kg/m General Appearance: Well appearing, alert, in no acute distress, well-hydrated, well nourished. and Overweight. Lungs: Lungs clear to auscultation. No wheezing, rhonchi, rales.. Heart: RRR without murmur, gallop, or rubs. No ectopy. Abdomen: Normal abdominal exam, Abdomen soft, non-tender. Bowel sounds normal. No masses, organomegaly. Extremities: left knee; tenderness to the inner knee, no swelling, good ROM, left hamstring soreness. Health Maintenance List HEPATITIS B(1 of 3 - 3-dose series) Never done COVID-19 VACCINE(1) Never done HEPATITIS C SCREENING Never done HIV SCREENING Never done DTAP,TDAP,TD(1 - Tdap) Never done SHINGRIX VACCINE(1 of 2) Never done INFLUENZA(1) due on 11/06/2021 DEPRESSION SCREENING due on 01/08/2022 PROSTATE CANCER SCREENING DISCUSSION due on 12/11/2023 DIABETES SCREEN due on 03/14/2024 LIPID SCREEN due on 03/14/2026 COLORECTAL CANCER SCREENING due on 10/04/2030 Data reviewed None ASSESSMENT/PLAN: 1. Wellness examination - ICD9: V70.0, ICD10: Z00.00 (primary diagnosis) - Counseled on healthy diet and regular exercise - Discussed need for and benefit of weight loss. BMI 31.78 kg/(m^2) - Follow up for annual exam in one year - check lipid profile 2. Acute pain of left knee - ICD9: 719.46, ICD10: M25.562 Strain; possible medial meniscus injury or bursitis Start Mobic 15 mg daily Consult Physical Therapy Ok to exercise and run as able Continue with stretching, compression sleeve, heat or ice If not improving in 6-8 weeks consider Ortho evaluation Follow up in 1 year or sooner if needed. Will call with lab results. I agree with the Chief Complaint, ROS, and Past Histories independently gathered by the clinical retail support manager and the remaining scribed note accurately describes my personal service to the patient. Ness Hayes MD The documentation for this note was completed by Kerri Ray Ma acting as scribe for Ness Hayes MD. October 31, 2021 8:19 AM. Kerri Ray Ma documented in this encounter [facility] 09-09-2021 Miscellaneous Notes Wait for pt response, assist in scheduling. Alana Sainz Ma documented in this encounter [facility] 10-28-2020 History of Presen t illness Narrative Radiology Service Progress Note PATIENT NAME: Chitra Gomez DATE OF SERVICE: October 28, 2020 TIME: 3:44 PM PATIENT IDENTITY VERIFICATION COMPLETED USING TWO (2) IDENTIFIERS: Name and Date of confirmed by patient verbally. FALL SCREENING: Has the patient had 2 falls in the last year or 1 fall with injury or currently using an Ambulatory Assistive Device (Walker, Cane, Wheelchair, Crutches, etc.)? No PATIENT GENDER DATA: Male PATIENT RELEVANT IMPLANT DATA REVIEWED: Not Applicable RADIOLOGY DEPARTMENT: General X-ray: Exam(s) Completed: Chest X-Ray PERIPHERAL IV DATA: Not applicable SIGNED BY: RT Jesus(R) October 28, 2020 3:44 PM documented in this encounter [facility] Evaluation note Diagnosis Wellness examination- Primary Acute pain of left knee Hyperlipidemia, unspecified hyperlipidemia type [facility] Acute pain of left knee [facility] Acute pain of left knee- Primary [facility] Diagnosis Acute pain of left knee- Primary [facility] Diagnosis Acute pain of left knee- Primary [facility] Diagnosis Acute pain of left knee- Primary [facility] Diagnosis Wellness examination- Primary Screening for depression Encounter for screening examination for other mental health and behavioral disorders Fatigue, unspecified type Environmental allergies Other allergy, other than to medicinal agents Screening PSA (prostate specific antigen) Special screening for malignant neoplasm of prostate Hyperlipidemia, unspecified hyperlipidemia type [facility] Diagnosis Fatigue, unspecified type Cough documented in this encounter [facility] note* Diagnosis Crushing injury of left lower leg, initial encounter- Primary Crushing injury of left lower leg, initial encounter documented in this encounter [facility] note* Diagnosis Crushing injury of left lower leg, initial encounter documented in this encounter [facility] note* Diagnosis Encounter for observation for other suspected diseases and conditions ruled out- Primary Encounter for observation for other suspected diseases and conditions ruled out documented in this encounter [facility] for visit Narrative* Diagnostic Procedure Only (Urgent) - Closed Specialty Diagnoses / Procedures Referred By Contac t Referred To Contact [facility] Diagnoses Crushing injury of left lower leg, initial encounter Procedures XR TIBIA FIBULA 2V AP/LAT LEFT RADIOLOGIC EXAMINATION TIBIA & FIBULA 2 VIEWS Paz Ambriz APRN.[facility] [address] [place] [address] Phone: tel: fax: [place] [address] Referral ID Status Reason Start Date Expiration Date V isits Requested Visits Authorized [id number] Closed Auto-Generate d Referral 08/25/2024 09/24/2025 1 1 [facility] Summary Purpose Family History No Family History Records FoundNo Family History Records Found Advance Directives Documents on File Type Date Recorded Patient Jewelry Coater Expl anation Advance Directive(s) 10/04/2020 7:21 AM Advance Directive(s) 09/18/2020 12:52 PM Reason for Referral Specialty Diagnoses / Procedures Referred By Contac t Referred To Contact [facility] Diagnoses Acute pain of left knee Procedures CONSULT TO PHYSICAL THERAPY PHYSICAL THERAPY EVALUATION HIGH COMPLEX 45 MINS Ness Hayes MD [address] [place] [address] [facility] [address] [place] [address] Referral ID Status Reason Start Date Expiration Date Visits Requested Visits Authorized [id number] Authorized Auto-Generat ed Referral 03/08/2021 03/07/2022 99 99 Specialty Diagnoses / Procedures Referred By Contac t Referred To Contact [facility] Diagnoses Acute pain of left knee Procedures PT REHAB FOLLOW UP ORDER THERAPEUTIC EXERCISES RE, EA 15 MIN. Erick Yusuf DALIA [facility] [address] [place] [address] Referral ID Status Reason Start Date Expiration Date Visits Requested Visits Authorized [id number] Pending Review PCP Requested Referral Auto-Generate d Referral 02/13/2022 05/14/2022 1 1 Additional Source Comments (unrecognized sect ion and content) No Status Records FoundNo Status Records Found INFORMATION SOURCE (unrecogn ized section and content) DATE CREATED AUTHOR 04/01/2021 [facility] DATE CREATED AUTHOR AUTHOR'S ORGANIZ ATION 08/28/2024 [facility] Source Comments (unrecognize d section and content) In the event this informatio n is protected by the Federal Confidentiality of Alcohol and Drug Abuse Patient Records regulations: The Federal rules restrict any use of the information to criminally investigate or prosecute any alcohol or drug abuse patient.[facility] the event this information is protected by the Federal Confidentiality of Alcohol and Drug Abuse Patient Records regulations: The Federal rules restrict any use of the information to criminally investigate or prosecute any alcohol or drug abuse patient.[facility] the event this information is protected by the Federal Confidentiality of Alcohol and Drug Abuse Patient Records regulations: The Federal rules restrict any use of the information to criminally investigate or prosecute any alcohol or drug abuse patient.[facility] the event this information is protected by the Federal Confidentiality of Alcohol and Drug Abuse Patient Records regulations: The Federal rules restrict any use of the information to criminally investigate or prosecute any alcohol or drug abuse patient.[facility] the event this information is protected by the Federal Confidentiality of Alcohol and Drug Abuse Patient Records regulations: The Federal rules restrict any use of the information to criminally investigate or prosecute any alcohol or drug abuse patient.[facility] the event this information is protected by the Federal Confidentiality of Alcohol and Drug Abuse Patient Records regulations: The Federal rules restrict any use of the information to criminally investigate or prosecute any alcohol or drug abuse patient.[facility] the event this information is protected by the Federal Confidentiality of Alcohol and Drug Abuse Patient Records regulations: The Federal rules restrict any use of the information to criminally investigate or prosecute any alcohol or drug abuse patient.[facility] the event this information is protected by the Federal Confidentiality of Alcohol and Drug Abuse Patient Records regulations: The Federal rules restrict any use of the information to criminally investigate or prosecute any alcohol or drug abuse patient.[facility] the event this information is protected by the Federal Confidentiality of Alcohol and Drug Abuse Patient Records regulations: The Federal rules restrict any use of the information to criminally investigate or prosecute any alcohol or drug abuse patient.[facility] the event this information is protected by the Federal Confidentiality of Alcohol and Drug Abuse Patient Records regulations: The Federal rules restrict any use of the information to criminally investigate or prosecute any alcohol or drug abuse patient.[facility] the event this information is protected by the Federal Confidentiality of Alcohol and Drug Abuse Patient Records regulations: The Federal rules restrict any use of the information to criminally investigate or prosecute any alcohol or drug abuse patient.[facility] the event this information is protected by the Federal Confidentiality of Alcohol and Drug Abuse Patient Records regulations: The Federal rules restrict any use of the information to criminally investigate or prosecute any alcohol or drug abuse patient.[facility] the event this information is protected by the Federal Confidentiality of Alcohol and Drug Abuse Patient Records regulations: The Federal rules restrict any use of the information to criminally investigate or prosecute any alcohol or drug abuse patient.[facility] the event this information is protected by the Federal Confidentiality of Alcohol and Drug Abuse Patient Records regulations: The Federal rules restrict any use of the information to criminally investigate or prosecute any alcohol or drug abuse patient.[facility] the event this information is protected by the Federal Confidentiality of Alcohol and Drug Abuse Patient Records regulations: The Federal rules restrict any use of the information to criminally investigate or prosecute any alcohol or drug abuse patient.[facility] the event this information is protected by the Federal Confidentiality of Alcohol and Drug Abuse Patient Records regulations: The Federal rules restrict any use of the information to criminally investigate or prosecute any alcohol or drug abuse patient.[facility] Care Teams (unrecognized sec tion and content) Crutch Maker Relationship Specialty Start Date End Date Ness Hayes MD [address] [place] [address] PCP - General Family Practice 11/08/18 Crutch Maker Relationship Specialty Start Date End Date Ness Hayes MD [address] [place] [address] PCP - General Family Practice 11/08/18 Crutch Maker Relationship Specialty Start Date End Date Ness Hayes MD [address] [place] [address] PCP - General Family Practice 11/08/18 Crutch Maker Relationship Specialty Start Date End Date Ness Hayes MD [facility] [place] [address] PCP - General Family Medicine 11/08/18 Crutch Maker Relationship Specialty Start Date End Date Ness Hayes MD [facility] [place] [address] PCP - General Family Medicine 11/08/18 Crutch Maker Relationship Specialty Start Date End Date Ness Hayes MD [address] [place] [address] PCP - General Family Medicine 11/08/18 Crutch Maker Relationship Specialty Start Date End Date Ness Hayes MD [address] [place] [address] PCP - General Family Medicine 11/08/18 Crutch Maker Relationship Specialty Start Date End Date Ness Hayes MD [address] [place] [address] PCP - General Family Medicine 11/08/18 Crutch Maker Relationship Specialty Start Date End Date Ness Hayes MD [address] [place] [address] PCP - General Family Medicine 11/08/18 Crutch Maker Relationship Specialty Start Date End Date Ness Hayes MD [address] [place] [address] PCP - General Family Medicine 11/08/18 Crutch Maker Relationship Specialty Start Date End Date Ness Hayes MD [address] [place] [address] PCP - General Family Medicine 11/08/18 Crutch Maker Relationship Specialty Start Date End Date Ness Hayes MD [address] [place] [address] PCP - General Family Medicine 11/08/18 Dany Del Angel APRN.DANCE ENTERTAINER [address] [place] [address] [address] Family Medicine 02/22/24 Crutch Maker Relationship Specialty Start Date End Date Ness Hayes MD [address] [place], [place] [address] PCP - General Family Medicine 11/08/18 Dany Del Angel APRN.DANCE ENTERTAINER [address] [place], [place] [id number] Dump Truck Driver [address] Family [facility] 02/22/24 Reason for Visit (unrecogniz ed section and content) Reason Comments PT Progress Note Specialty Diagnoses / Procedures Referred By Contac t Referred To Contact [facility] Diagnoses Acute pain of left knee Procedures CONSULT TO PHYSICAL THERAPY PHYSICAL THERAPY EVALUATION HIGH COMPLEX 45 MINS Ness Hayes MD [address] [place] [address] [facility] [address] [address] Referral ID Status Reason Start Date Expiration Date Visits Requested Visits Authorized [id number] Authorized Auto-Generat ed Referral 03/08/2021 03/07/2022 99 99 Reason Comments Physical Therapy Reason Comments Physical Reason Comments PT Eval Reason Comments PT Progress Note Specialty Diagnoses / Procedures Referred By Contac t Referred To Contact [facility] Diagnoses Acute pain of left knee Procedures CONSULT TO PHYSICAL THERAPY PHYSICAL THERAPY EVALUATION HIGH COMPLEX 45 MINS Ness Hayes MD [address] [place] [address] [facility] [address] [address] Reason Comments Physical Specialty Diagnoses / Procedures Referred By Contac t Referred To Contact Radiology / RADIO GENERAL [facility] Diagnoses Acute cough Room 1 Procedures RADIOLOGIC EXAM CHEST 2 VIEWS XR CHEST Olga Mejia APRN.DANCE ENTERTAINER [address] [place] [address] Radio General [facility] [address] [place] [address] Referral ID Status Reason Start Date Expiration Date Visits Re quested Visits Authorized [id number] Closed 03/20/2023 03/07/2024 1 1 Reason Comments Leg Injury L lower leg injury x 6 days, 6 sheets of plywood fell into calvin, swelling and bruising, blisters in middle weeping Reason Comments Follow Up FOR RECORDS PERTAINING TO PATIENTS WHO ARE OR HAVE BEEN ENROLLED IN A CHEMICAL DEPENDENCY/SUBSTANCEABUSE PROGRAM, SOME INFORMATION MAY BE OMITTED. This clinical summary was aggregated from multiple sources. Caution should be exercised in using it in the provision of clinical care. This summary normalizes information from multiple sources, and as a consequence, information in this document may materially change the coding, format and clinical context of patient data. In addition, data may be omitted in some cases. CLINICAL DECISIONS SHOULD BE BASED ON THE PRIMARY CLINICAL RECORDS. [employer] [facility]. provides no warranty or guarantee of the accuracy or completeness of information in this document.
[2024-09-01] MEDS: Smz/Tmp Ds Tablet 1 TABLET PO (23:33)
[2024-09-01 23:34] VITALS: BP 125/88; PULSE 59; RESP 16; TEMP 36.6; O2SAT 99
== END 2024-09-01 23:37 | disposition home or self-care (01) ==
PROVIDERS: Emergency Provider Emergency Medicine; PCP Family Medicine; Visit Provider Emergency Medicine
DX: S80.12XA Contusion of left lower leg, initial encounter (principal); L03.116 Cellulitis of left lower limb; I80.02 Phlebitis and thrombophlebitis of superficial vessels of left lower extremity; W22.8XXA Striking against or struck by other objects, initial encounter; J45.909 Unspecified asthma, uncomplicated
CPT/HCPCS: 93971; 99282